=== PATIENT | male | born 1985 | race Caucasian/White ===

== ENCOUNTER 2017-01-29 10:50 | Inpatient (IN) | payer MEDICAID, SELFPAY ==
[2017-01-29 11:29] LABS: PTT 25.3 SEC (22.9-36.1)
[2017-01-29 11:30] LABS: Hematocrit 47.2 % (42.0-52.0); Mean Platelet Volume 8.3 fL (7.4-10.4); Prothrombin Time 13.4 SEC (12.0-14.7); Red Blood Cell (RBC) Count 4.89 mill/uL (4.70-6.10); White Blood Cell (WBC) Count 31.2 thou/uL (4.8-10.8)
[2017-01-29 11:45] LABS: Troponin I 4.513 ng/mL (< 0.028)
[2017-01-29 11:47] LABS: ALT (SGPT) 32 U/L (8-55); AST (SGOT) 35 U/L (5-34); Alkaline Phosphatase 74 U/L (40-150); Anion Gap 16 mmol/L (10-20); BUN (Urea Nitrogen) 14 mg/dL (8.9-20.6); CK (CPK) 181 U/L (30-200); Calc. Creatinine Clearance 0 mL/min (70-130); Calcium 9.2 mg/dL (7.8-10.44); Carbon Dioxide 25 mmol/L (22-29); Chloride 103 mmol/L (98-107); Estimated GFR-MDRD Greater than 90; Globulin 2.7 g/dL (2.4-3.5); Lipase 8 U/L (8-78)
[2017-01-29] MEDS ORDERED: Pantoprazole 40 MG VIAL ONE (11:49)
[2017-01-29] MEDS ORDERED: Fentanyl 100 MCG/2 ML VIAL ONE ×2 (11:49→13:23)
[2017-01-29] MEDS ORDERED: Ondansetron HCl/PF 4 MG/2 ML Vial ONE ×2 (11:49→14:31)
[2017-01-29 11:54] LABS: Band 2 % (5-11); Neutrophil 87 % (42-75); Promyelocytes 1 % (0-0)
--- NOTE | 2017-01-29 11:57 | RAD ---
PORTABLE CHEST: HISTORY: Chest pain. FINDINGS: There is hazy alveolar infiltrate involving the right mid and lower lung. Findings are concerning fo r an inflammatory process. The left lung appears clear. The heart and mediastinum are unremarkable. IMPRESSION: Evidence of hazy alveolar infiltrate in the right mid and lower lung field. Follow-up PA and lateral views of chest recommended for better evaluation. POS: [facility]
[2017-01-29] MEDS ORDERED: cefTRIAXone\\ROCEPHIN 2 GM, Admixture Fee 1 EACH in Sodium Chloride 0.9% 100 ML IVPB SCH (12:00)
[2017-01-29] MEDS ORDERED: Azithromycin 500 MG in Sodium Chloride 0.9% 250 ML 250 ML IVPB SCH (12:00)
[2017-01-29 12:19] LABS: Lactic Acid - Sepsis 3.5 mmol/L (0.5-2.2)
[2017-01-29 12:24] LABS: Acetaminophen Less than 6.0 mcg/mL (10.0-30.0); Salicylate Less than 8.0 mg/dL (15.0-30.0)
[2017-01-29 13:36] LABS: Bilirubin Negative (Negative); Blood, Urine Negative (Negative); Glucose, Urine (Dipstick) Negative (Negative); Ketone, Urine Negative (Negative); Nitrite Negative (Negative); Protein, Urine (Dipstick) Negative (Neg-Trace); Urobilinogen 0.2 mg/dL (0.2-1.0)
[2017-01-29 13:49] LABS: Amphetamine Detected (NotDetected); Methadone Not Detected (NotDetected); Methamphetamine Detected (NotDetected)
[2017-01-29] MEDS ORDERED: Metoprolol Tartrate 25 MG TAB PO SCH (14:15)
[2017-01-29] MEDS ORDERED: Sodium Chloride 0.9% 1,000 ML IV SCH (17:22)
[2017-01-29] MEDS ORDERED: Ondansetron ODT 4 MG TAB SL PRN (17:22)
[2017-01-29] MEDS ORDERED: Ondansetron HCl/PF 4 MG/2 ML Vial IVP PRN (17:22)
[2017-01-29] MEDS ORDERED: Acetaminophen 325 MG TAB PO PRN (17:31)
[2017-01-29] MEDS ORDERED: HYDROcodone/Acetaminophen 5/325 mg Tablet PO PRN (17:31)
[2017-01-29] MEDS ORDERED: Lorazepam 2 MG/ML VIAL SLOW IVP SCH ×3 (17:45→23:15)
[2017-01-29] MEDS: Sodium Chloride 0.9% 1,000 ML IV SCH (18:13)
[2017-01-29 18:44] LABS: Troponin I 4.494 ng/mL (< 0.028)
[2017-01-29 18:53] LABS: Hematocrit 49.3 % (42.0-52.0)
[2017-01-29] MEDS: HYDROcodone/Acetaminophen 10/325 mg Tablet PO PRN (19:36)
[2017-01-29] MEDS: Pantoprazole 40 MG VIAL IVP SCH (20:25)
[2017-01-29] MEDS: Metoprolol Tartrate 25 MG TAB PO SCH (20:26)
[2017-01-29] MEDS ORDERED: Ketorolac Tromethamine 30 MG/ML VIAL IVP SCH (21:00)
[2017-01-29] MEDS ORDERED: [UNRECOGNIZED DRUG - REMARK] FS SCH (21:00)
[2017-01-29] MEDS ORDERED: Famotidine/PF 20 mg/2ml Vial SLOW IVP SCH (21:00)
[2017-01-29] MEDS ORDERED: Lorazepam 1 MG TAB PO PRN (23:05)
[2017-01-29] MEDS ORDERED: cloNIDine 0.1 MG TAB PO SCH (23:15)
[2017-01-29 23:45] LABS: Hematocrit 48.5 % (42.0-52.0)
[2017-01-30 01:09] LABS: Sodium 139 mmol/L (135-148)
[2017-01-30 01:13] LABS: Mode NRB
--- NOTE | 2017-01-30 01:22 | CON ---
DATE OF CONSULTATION: 01/29/2017 SERVICE: Pulmonary Medicine. REASON FOR CONSULTATION: Pneumonia. HISTORY OF PRESENT ILLNESS: The patient is a 31-year-old white male with past medical history signif icant for cyclical vomiting syndrome. He also has acid reflux disease. He was in his usual state of health when he started having increasing severity of his nausea and vomiting. This progressed for a period of a couple of days. He then developed some fevers, chills, and cough. The cough is bringin g up some blood-tinged sputum. It had a stringy component to it most characteristic of reflux. That being said, he alleges that it comes from his lungs. I witnessed a couple of these spells at [facility]. Otherwise, there has been no interval change to his condition. He presented to the emergency dep artment where his white blood cell count was elevated. He had high neutrophils and high . Ches t x-ray was consistent with community-acquired pneumonia. The patient was given some antibiotics. O therwise, there has been no interval change to his condition. He has increasing work of breathing. PAST MEDICAL HISTORY: 1. Peptic ulcer disease. 2. Gastroesophageal reflux disease. 3. Seizure disorder. 4. Cyclical vomiting syndrome. 5. Marijuana abuse. 6. Anxiety disorder. PAST SURGICAL HISTORY: Repair of jaw. SOCIAL HISTORY: He drinks alcohol occasionally. He denies any illicit drugs outside of marijuana. He does not smoke any cigarettes. He denies any exposure to chemicals, dust, asbestos, or tuberculos is. FAMILY HISTORY: Noncontributory. ALLERGIES: No known drug allergies. MEDICATIONS: List of his inpatient medications was reviewed. No specific updates were made at this time. REVIEW OF SYSTEMS: General, head, ears, eyes, nose, throat, cardiovascular, respiratory, GI, , mus culoskeletal, neurologic and skin is negative except as mentioned in the HPI. PHYSICAL EXAMINATION: VITAL SIGNS: Afebrile, pulse 124, blood pressure 128/89, respirations 22, saturation 94% on 4 liters nasal cannula. GENERAL: The patient is awake, alert, in mild respiratory distress. He is vomiting and retching at bedside. The coughing that he is doing is preceded by significant gagging spells. After that, he br ings up a bloody mucoid secretion that is characteristic of stomach acid. HEENT: Normocephalic, atraumatic. Sclerae are white. Conjunctivae pink. Oral and nasal mucosa is moist without lesions. LUNGS: Decent air entry. Crackles are present on the right, but not left. No prolonged expiratory phase is appreciated. No wheezing. Rhonchi clear with cough. HEART: Normal rate, regular. ABDOMEN: Soft, nontender, nondistended. Bowel sounds are positive. MUSCULOSKELETAL: No cyanosis or clubbing. There is no pitting in the bilateral lower extremities. SKIN: Dry. GENITOURINARY: No Aguiar catheter. NEUROLOGIC: Grossly nonfocal. LABORATORY DATA: WBC 31.2, hemoglobin 16.3, platelets 303,000. Neutrophil count was 83%. INR 1.0. Lactate was 3.5, but is down trending to 3.2. Troponin 4.53, it starting to trend downward of 4.49. CRP is elevated. Basic metabolic profile and liver function studies were essentially unremarkable. Urinalysis is unremarkable. Urine drug screen is positive for amphetamines, methamphetamine, and c annabinoids. Alcohol, acetaminophen, and salicylate are all unremarkable. IMAGING: Chest x-ray demonstrates opacification of portion of the right lower lobe, and likely right upper lobe. The right middle lobe appears to be spared. The left lung does not demonstrate any inf iltrates. ASSESSMENT: 1. Acute hypoxic respiratory failure. 2. Community-acquired pneumonia. 3. Coughing up blood, stemming from gagging, likely representing gastrointestinal losses, minimal. PLAN: The patient is doing okay from a respiratory perspective. At this point, I am not concerned a bout him or his respiratory status. He does, however, need to be watched very closely. Intermittent BiPAP can be considered overnight if he has increasing work of breathing, but currently, he suggeste d his breathing is labored fairly comfortable. I witnessed one of these hemoptysis episodes at [facility] and it was preceded with excessive gagging. My suspicion is, this is a GI origin. For the time livia kline, supportive care including antibiotics directed at severe community-acquired pneumonia will be c ontinued. If he clinically defervesces from his underlying illness, there will be no need for chest x-ray until 4-6 weeks in the future; if he gets worse, intubation will be considered. Pulmonary Crit ical Care will continue to follow while the patient remains in this location. Obviously, we will lashawn p him n.p.o. at this point.
[2017-01-30 02:04] LABS: Critical Call CKMBM RESULT DECREASING; Critical Call Chem Troponin I RESULT DECREASING; Troponin I 3.036 ng/mL (< 0.028)
[2017-01-30] MEDS ORDERED: Ondansetron HCl/PF 4 MG/2 ML Vial IVP SCH (02:15)
[2017-01-30] MEDS: Ketorolac Tromethamine 30 MG/ML VIAL IVP PRN ×3 (02:16→17:08)
[2017-01-30] MEDS: Sodium Chloride 0.9% 1,000 ML IV SCH ×3 (02:22→10:02)
[2017-01-30] MEDS: Lorazepam 2 MG/ML VIAL SLOW IVP PRN (03:42)
[2017-01-30 05:13] LABS: ALT (SGPT) 20 U/L (8-55); AST (SGOT) 27 U/L (5-34); Alkaline Phosphatase 64 U/L (40-150); Anion Gap 16 mmol/L (10-20); BUN (Urea Nitrogen) 15 mg/dL (8.9-20.6); Bilirubin, Total 1.6 mg/dL (0.2-1.2); Calc. Creatinine Clearance 113 mL/min (70-130); Calcium 8.9 mg/dL (7.8-10.44); Carbon Dioxide 21 mmol/L (22-29); Chloride 109 mmol/L (98-107); Cholesterol 161 mg/dl (< 200 Desired); Estimated GFR-MDRD Greater than 90; Globulin 2.6 g/dL (2.4-3.5); LDL Cholesterol, Calculated 81 mg/dL; Magnesium 1.8 mg/dL (1.6-2.6)
[2017-01-30 05:46] LABS: Band 1 % (5-11); Mean Platelet Volume 9.4 fL (7.4-10.4); Neutrophil 87 % (42-75); Red Blood Cell (RBC) Count 4.77 mill/uL (4.70-6.10); White Blood Cell (WBC) Count 27.6 thou/uL (4.8-10.8)
[2017-01-30] MEDS: Pantoprazole 40 MG VIAL IVP SCH ×2 (07:54→20:32)
[2017-01-30] MEDS: Metoprolol Tartrate 25 MG TAB PO SCH (07:54)
[2017-01-30] MEDS: HYDROcodone/Acetaminophen 10/325 mg Tablet PO PRN ×2 (07:55→13:56)
[2017-01-30] MEDS ORDERED: Sodium Chloride 0.9% 1,000 ML IV SCH (08:15)
--- NOTE | 2017-01-30 08:51 | RAD ---
PORTABLE AP CHEST XRAY: DATE: 01/30/17. HISTORY: Shortness of breath. COMPARISON: 01/29/17. FINDINGS: Again noted are increased alveolar opacities seen throughout the right lung with increased interstiti al opacities now seen in the left mid lung zone. Cardiac silhouette and pulmonary vasculature are wi thin normal limits. There has been no other interval change from the prior exam. IMPRESSION: Increase in alveolar opacities within the right lung with interval development of increased interstit ial densities in the left perihilar region. Findings may be related to either worsening asymmetric p ulmonary edema or worsening infectious process. Continued followup to complete resolution is recomme nded. POS: [facility]
[2017-01-30] MEDS ORDERED: guaiFENesin ER 600 MG TAB PO SCH (09:00)
[2017-01-30] MEDS: guaiFENesin ER 600 MG TAB PO SCH ×2 (10:03→20:32)
[2017-01-30 10:05] LABS: Troponin I 1.796 ng/mL (< 0.028)
--- NOTE | 2017-01-30 11:09 | PDOC.PN ---
- Subjective Encounter Start Date: 01/30/17 Encounter Start Time: 07:55 Pt admitted to IMCU, quickly transferred to CCU side. Seen by pulm, minimal hemoptysis per their eval. Thinks its all CAP. On appropriate abx. Troponins trended up to 4.9, then started coming down no f/C, no D/C. Belly feels jittery, pt anxious, more than baseline place don precedex drip with PRN ativan. [place] back positive for amphetamines/meth. Pt says he was given a 'truck stop upper' by his friends. some nausea without vomiting. 10 point ROS performed and neg for all systems except as per HPI - Objective Resuscitation Status: Resuscitation Status FULL:Full Resuscitation MAR Reviewed: Yes Vital Signs & Weight: Vital Signs (12 hours) Temp Pulse Resp BP BP Pulse Ox 01/30/17 07:00 98.5 F 01/30/17 06:19 93 L 01/30/17 04:00 97.9 F 01/30/17 03:00 99.6 F 120 H 40 H 95 01/30/17 02:00 99.6 F 01/30/17 01:20 98.7 F 140 H 36 H 90 L 01/30/17 00:00 98.1 F 125 H 26 H 114/48 L 86 L 01/29/17 23:37 100/67 Weight Weight 136 lb Most Recent Monitor Data Heart Rate from ECG 98 NIBP 110/84 NIBP BP-Mean 91 Respiration from ECG 46 SpO2 88 I&O: 01/29/17 01/30/17 01/31/17 06:59 06:59 06:59 Intake Total 1332 90 Output Total 425 250 Balance 907 -160 Result Diagrams: 01/30/17 03:24 01/30/17 03:24 Radiology Reviewed by me: Yes EKG Reviewed by me: Yes Phys Exam - Physical Examination Constitutional: NAD HEENT: PERRLA, moist MMs, sclera anicteric, oral pharynx no lesions Neck: no nodes, no JVD, supple, full ROM Respiratory: no wheezing, no rhonchi right sided rale sin all lung fiels, slight left posterior to midlung tachy, regular, no murmurs Gastrointestinal: soft, non-tender, no distention, positive bowel sounds Musculoskeletal: no edema, pulses present Neurological: non-focal, normal sensation, moves all 4 limbs Lymphatic: no nodes Psychiatric: A&O x 3 Deviation from normal: very anxious Skin: no rash, normal turgor, cap refill <2 seconds Dx/Plan (1) CAP (community acquired pneumonia) Code(s): J18.9 - PNEUMONIA, UNSPECIFIED ORGANISM Status: Acute Qualifiers: Laterality: right Lung location: middle lobe of lung Qualified Code(s): J18.1 - Lobar pneumonia, unspecified organism Comment: present on admit, CTX plus levoflox (2) NSTEMI (non-ST elevated myocardial infarction) Code(s): I21.4 - NON-ST ELEVATION (NSTEMI) MYOCARDIAL INFARCTION Status: Acute Comment: likely from amphetamine use, intentional or otherwise (3) Amphetamine abuse Code(s): F15.10 - OTHER STIMULANT ABUSE, UNCOMPLICATED Status: Acute Comment : pt denies taking intentionally (4) H/O anxiety disorder Code(s): Z86.59 - PERSONAL HISTORY OF OTHER MENTAL AND BEHAVIORAL DISORDERS Status: Acute (5) Acute hypoxemic respiratory failure Code(s): J96.01 - ACUTE RESPIRATORY FAILURE WITH HYPOXIA Status: Acute Comment: secondary to PNA (6) Severe sepsis Code(s): A41.9 - SEPSIS, UNSPECIFIED ORGANISM; R65.20 - SEVERE SEPSIS WITHOUT SEPTIC SHOCK Status: Acute Comment: elevated lactate, fever, WBC, tachycardia and bacterial pneumonia (7) Hemoptysis Code(s): R04.2 - HEMOPTYSIS Status: Acute Comment: none since last night. Pulm doubt autoimmune disease - Plan * .
[2017-01-30] MEDS: cefTRIAXone\\ROCEPHIN 2 GM in Sodium Chloride 0.9% 100 ML IVPB SCH (12:33)
[2017-01-30] MEDS ORDERED: Furosemide 20 MG/2 ML VIAL SLOW IVP SCH (13:15)
--- NOTE | 2017-01-30 13:18 | PRG ---
DATE OF SERVICE: 01/30/2017 SERVICE: Pulmonary Medicine. INTERVAL HISTORY: The patient is doing fine from a respiratory standpoint. He has been weaned down to 50% on a Ventimask. His oxygen requirements are actually improving dramatically. His mentation i s also improving. Because of increasing agitation and diaphoresis associated with his acute intoxica tion, the patient was moved to the ICU to put on dexmedetomidine. This was a fantastic drug for him and help level him out. He currently denies any fevers, chills, nausea, vomiting, diarrhea or chest discomfort. He continues to have persistent nausea and abdominal discomfort which has been ongoing f or several months if not years. PHYSICAL EXAMINATION: VITAL SIGNS: Afebrile, pulse 113, blood pressure 114/81, respirations 52, saturation 92% on 50% Vent imask. GENERAL: The patient is awake, alert, in no apparent distress. LUNGS: Decent air entry with crackles on the right. No prolonged expiratory phase or wheezing is ap preciated. HEART: Normal rate and regular. ABDOMEN: Soft, nontender, and nondistended. Bowel sounds positive. MUSCULOSKELETAL: No cyanosis or clubbing. There is no pitting in the bilateral lower extremities. NEUROLOGIC: Grossly nonfocal. LABORATORY DATA: WBC 27.6, hemoglobin 16.4 and stable. Platelets 229. Neutrophil count 87% with 1% bands. These are both roughly stable. Lymphocyte count, however, is responding. INR 1.0. A pH 7. 43, pCO2 27.9, and pO2 54. Basic metabolic profile is completely unremarkable. Total bilirubin is 1 .6 and gently up trending. Troponin is down trending to 1.8. BNP 2220. Liver function studies are otherwise unremarkable. Urinalysis is negative. Urine drug screen is positive for amphetamines, met hamphetamines and adenoids. Rheumatoid factor is negative. Blood cultures x2 are unremarkable to luis wynn. IMAGING DATA: Ultrasound of the heart demonstrates 15%-20% ejection fraction with severely depressed left ventricle, moderate mitral regurgitation, and mild to moderate tricuspid regurgitation. ASSESSMENT: 1. Acute systolic heart failure. 2. Non-ST elevation myocardial infarction. 3. Community-acquired pneumonia, severe. 4. Acute hypoxic respiratory failure. 5. Amphetamine and marijuana abuse. PLAN: We will continue our empiric antibiotics. Cardiology consultation will be placed for the non- ST elevation ME, elevated BNP, new finding of systolic heart failure. Pulmonary or Critical Care wing l continue to follow while the patient remains in this location for the next 24 hours.
--- NOTE | 2017-01-30 14:27 | HP ---
DATE OF ADMISSION: 01/29/2017 TIME OF VISIT: 01/29/2017 at 14:00 CHIEF COMPLAINT: Coughing up blood. HISTORY OF PRESENT ILLNESS: Mr. Maloney is a 31-year-old white male with history of anxiety, seizures after benzodiazepine withdrawal, and peptic ulcer disease who presents to the Emergency Department for a 1-day history of coughing up blood. States he had a cough and started noting silver dollar-sized spots of blood the night prior to presentation. This came after a 7-day course of nausea, vomiting , diarrhea and was not accompanied by fever. He is actually feeling better. He said he has had some chills, but no fever. He does complain right now of right-sided chest pain. He has been able to eat without any difficulty, had pizza last night, and denied doing anything else. He does have a history of chronic marijuana use that he takes for chronic abdominal problems. Interestingly, he initially told me that he does not use any other drugs. However, later the night of admission, urine drug screen did come back positive for amphetamines and methamphetamines. In the emergency department, he was noted to be tachycardic in the 120s, blood pressure was borderline normal, hemoglobin and creatinine were normal, troponin was elevated at 4.513. We were called for admission to the ICU. He feels like he cannot breathe. His oxygen sats are well, but he is very anxious. Denies any GI bleeding, hematemesis, melena or hematochezia. Denies any rectal pain. PAST MEDICAL HISTORY: 1. Peptic ulcer disease. 2. History of seizures, none recently, last in 2013 after abrupt stoppage of prescribed benzodiazepines. 3. Chronic marijuana use. 4. Probable polysubstance abuse. PAST SURGICAL HISTORY: Includes jaw repair remotely. HOME MEDICATIONS: Prilosec 20 mg p.o. daily, which he states he does take every day. ALLERGIES: NKDA. FAMILY HISTORY: Dad was a tobacco user and had COPD. No history of premature coronary disease. SOCIAL HISTORY: Significant for marijuana 2-3 times per week. Last use was a couple of weeks ago. He takes this for nausea and chronic abdominal pain. Uses rare alcohol, used to drink heavy in the past, and does not drink. Has not had heavy drinking pattern in over a year he states. REVIEW OF SYSTEMS: A 10 point review of systems was performed and it is negative for all other systems except those as per HPI. PHYSICAL EXAMINATION: VITAL SIGNS: Temperature 98.4, pulse 121, blood pressure 107/74, respiratory rate 22, satting 98% on 2 liters. GENERAL: He is awake. He is alert. He is oriented x3. He is a thin, well- developed white male who appears to be acutely anxious. He is in mild respiratory distress. HEENT: Normocephalic, atraumatic. Pupils are equal and reactive bilaterally. Mucous membranes are moist. He has no visible lesions. No thrush. NECK: Supple. There is no lymphadenopathy, JVD or thyromegaly. He has normal carotid upstrokes without bruits. He is tachycardic. CARDIOVASCULAR: Normal S1 and S2. I do not appreciate S3 or S4. He is tachycardic but regular. There are no audible murmurs. LUNGS: Have right posterior and lateral crackles about mcc of the chest. Left appears to be clear in all rosas. ABDOMEN: Diffusely tender without rebound, rigidity or guarding. He has normoactive bowel sounds present in all 4 quadrants. EXTREMITIES: Show no cyanosis or clubbing. No edema. SKIN: Warm, moist, and well perfused. He has no rashes, no lesions. MUSCULOSKELETAL: Normal to inspection. He has no inflamed joints, no increased redness, and no palpable effusions. NEUROLOGIC: Cranial nerves II-XII are grossly intact. He has normal speech pattern, though it does seem pressured and fast. He has no focal neurologic deficits. PSYCHIATRIC: The patient is alert and oriented x3. He appears extremely anxious. LABORATORY DATA AND IMAGING DATA: 1. CMP showed sodium 140, potassium 3.8, chloride 103, bicarbonate 25, BUN 14, creatinine 0.92, and glucose of 128. Liver functions are normal. 2. CBC showed white count 31,200 and 87% granulocytes with 2% bands, hemoglobin 16.3, hematocrit of 47.2, and platelets normal. 3. Lipase was normal at 8. 4. Lactic acid elevated at 3.5. CK was elevated at 181, CK-MB of 16.5 and troponin I of 4.513. 5. Chest x-ray showed right middle lobe and right lower lobe alveolar infiltrates. ASSESSMENT AND PLAN: 1. Hemoptysis: Certainly the patient could have collagen vascular disease. We will check SINTIA, rheumatoid factor, ANCA both P and C. We will watch for signs of gross hemoptysis. We will place him on the IMCU. We will use oxygen to titrate to keep sats greater than 92%. We will ask Pulmonology to evaluate. 2. Right middle and lower lobe pneumonia: Community acquired. Patient has been started on ceftriaxone and levofloxacin for community-acquired pneumonia in the ICU setting. He initially denied doing any drugs. He is positive for amphetamine and methamphetamine. 3. Non-ST elevation myocardial infarction. Troponin certainly positive at 4.5 , likely due to his methamphetamine use. We will trend out his troponins. Due to his hemoptysis, we will not place him on any Lovenox at this time. Cannot use nitro paste as his blood pressure is too borderline. We will use metoprolol to try to get his heart rate slowed down to increase fill time and hopefully improve cardiac output and blood pressure. We will get a 2D echocardiogram ordered. 4. Polysubstance abuse: As patient does use marijuana, he states he does not use methamphetamines, however, said he went to a constitution party where they used "[employer]": That he describes as a stimulant sold at truck stops. He said his friend gave him some of that, but must have been laced or substituted for meth. 5. Acute hypoxic respiratory failure. Oxygen saturation is low on arrival. He is at borderline 92%-98% on 2 liters nasal cannula. We will titrate oxygen to keep his sats good. 6. History of seizure after benzodiazepine withdrawal. Suspect he has a history of dependence. I have p.r.n. Ativan available; however, on arrival to [facility], he did not get a dose in the ER and was literally crying because he did not get his Ativan. We will be very careful and judicious. 7. History of peptic ulcer disease: No evidence currently of upper gastrointestinal bleeding. We will continue Prevacid 20 mg IV q.12. Forty five minutes critical care was spent at the bedside. MTDD
--- NOTE | 2017-01-30 22:08 | CON ---
DATE OF CONSULTATION: 01/30/2017 HISTORY: Chester Maloney is a 31-year-old white male, who is admitted with a 1 week history of increased shortness of breath and cough. He denied any fever. He then started to have hemoptysis and is admitted for further evaluation. Chest x-ray showed right-sided infiltrate. He has been treated with IV antibiotics. Echocardiogram was performed, which revealed severe left ventricular dysfunction. He denies any chest discomfort except at times while coughing. PAST MEDICAL HISTORY: History of peptic ulcer disease. He has a seizure in 2013 after abruptly stopping benzodiazepines. He has polysubstance abuse. MEDICATIONS: Prilosec 20 mg daily, which he is not taking every day. ALLERGIES: None. OPERATIONS: Jaw surgery. SOCIAL HISTORY: He smokes marijuana 2-3 times per week, which he states he uses it for nausea and abdominal pain. He used to be a heavy drinker, but does not drink. He had a urine drug screen positive for methamphetamines and amphetamines. REVIEW OF SYSTEMS: Twelve point review of systems otherwise unremarkable. PHYSICAL EXAMINATION: VITAL SIGNS: 1Blood pressure 100/72, pulse of 94. He has been given 20 mg of Lasix IV and has diuresed 1400 mL. CHEST: Reveals crackles on the right. CARDIOVASCULAR: S1 and S2 are normal, without any S3, S4 or murmurs. ABDOMEN: Normal bowel sounds, without tenderness or organomegaly. EXTREMITIES: Revealed no clubbing, cyanosis or edema. NEUROLOGIC: Grossly intact. LABORATORY DATA: EKG revealed sinus tachycardia at a rate of 110 per minute, possible left atrial enlargement. Echocardiogram revealed severe left ventricular dysfunction with ejection fraction of 15% to 20%, moderate mitral regurgitation and mild to moderate tricuspid regurgitation. White count 27,600 , hemoglobin 16.4, hematocrit 47.0, platelets 229,000. INR 1.0, pH 7.43, pCO2 of 27.9, pO2 of 54.1. Sodium 142, potassium 4.0, chloride 109, carbon dioxide 21, BUN 15, creatinine 0.83. BNP 2220.4, cholesterol 161, triglycerides 141, HDL 52, LDL 81, CK-MB 24.2. Troponin I 4.970. IMPRESSION: 1. Severe cardiomyopathy with ejection fraction of 15% to 20%, probably nonischemic. 2. Elevated cardiac enzymes. 3. Probably in the acute phase of a myocarditis, although coronary artery disease and possible [id number] elevation myocardial infarction will need to be ruled out. 4. Marijuana use. 5. Amphetamine and methamphetamine abuse. 6. History of gastroesophageal reflux disease and peptic ulcer disease. 7. History of seizures with benzodiazepine withdrawal. 8. History of heavy EtOH abuse in the past- PLAN: Patient will continue to be diuresed. We will switch him from metoprolol to carvedilol. LETITIA inhibitor will also be added as his blood pressure will allow. Consideration history of cardiac catheterization to rule out coronary artery disease. MTDD
[2017-01-31] MEDS: Ketorolac Tromethamine 30 MG/ML VIAL IVP PRN ×2 (02:10→08:19)
[2017-01-31 04:27] LABS: #Eosinphils 0.1 thou/uL (0.0-0.7); #Lymphocytes 2.4 thou/uL (1.20-3.40); #Monocytes 0.9 thou/uL (0.11-0.59); #Neutrophils 10.8 thou/uL (1.40-6.50); %Basophils 0.2 % (0.0-1.0); %Eosinophils 0.7 % (0.0-10.0); %Lymphocytes 16.6 % (21.0-51.0); %Monocytes 6.6 % (0.0-10.0); Hematocrit 42.3 % (42.0-52.0); Mean Platelet Volume 8.9 fL (7.4-10.4); Red Blood Cell (RBC) Count 4.29 mill/uL (4.70-6.10); White Blood Cell (WBC) Count 14.2 thou/uL (4.8-10.8)
[2017-01-31 04:42] LABS: Anion Gap 9 mmol/L (10-20); BUN (Urea Nitrogen) 12 mg/dL (8.9-20.6); Calc. Creatinine Clearance 111 mL/min (70-130); Calcium 8.7 mg/dL (7.8-10.44); Carbon Dioxide 26 mmol/L (22-29); Chloride 106 mmol/L (98-107); Estimated GFR-MDRD Greater than 90; Magnesium 1.7 mg/dL (1.6-2.6)
[2017-01-31] MEDS: HYDROcodone/Acetaminophen 10/325 mg Tablet PO PRN ×4 (05:59→19:09)
[2017-01-31] MEDS: Pantoprazole 40 MG VIAL IVP SCH ×2 (08:31→20:26)
[2017-01-31] MEDS: guaiFENesin ER 600 MG TAB PO SCH ×2 (08:31→20:26)
[2017-01-31] MEDS: Carvedilol 3.125 MG TAB PO SCH ×3 (08:32→17:41)
[2017-01-31] MEDS ORDERED: Furosemide 20 MG TAB PO SCH ×2 (09:00→09:45)
--- NOTE | 2017-01-31 10:50 | PRG ---
DATE OF SERVICE: 01/31/2017 SUBJECTIVE: This morning, he is awake and alert. Denies any shortness of breath. PHYSICAL EXAMINATION: VITAL SIGNS: Blood pressure is 130/70, pulse 102, O2 sats 99% on 2 liters, respirations 19. His I's and O's are 1994 in and 1925 out. CHEST: Reveals decreased breath sounds, bilateral crackles. CARDIAC: Normal S1 and S2. No gallops. ABDOMEN: Soft, no masses. IMAGING DATA AND LABORATORY DATA: X-ray shows pulmonary edema. His electrolytes are normal. White count 14,000. Troponin is 1.7. IMPRESSION: 1. Cardiomyopathy, 15% ejection fraction. 2. History of substance abuse. 3. History of seizures, withdrawal of benzodiazepines. PLAN: He is on dexa for his seizure disorders, withdrawal from substance abuse. He is on broad-spec trum antibiotics, which I would continue for another 24 hours; thereafter, switch over to oral medica tion. Continue PT and supportive care. We will follow.
[2017-01-31] MEDS ORDERED: HYDROcodone/Acetaminophen 10/325 mg Tablet PO PRN (11:35)
--- NOTE | 2017-01-31 11:39 | PDOC.PN ---
- Subjective Encounter Start Date: 01/31/17 Encounter Start Time: 09:15 Pt seen by cardiology yesterday. He mentioned that he though tit is a nonischemic cardiomyopathy. ? myocarditis. EF 15-20% On precedex for suspected benzo withdrawl, though he denies being on any benzos for a long time. Regular MJ use, denies meth/amphetamines but yet UDS positive. Did well overnight, weaning down off o2. HR down to 80s when unditurbed, to 100s when awakened. complains of centrla chest pain radiating to back. Stigler helps a little, toradol ineffective No F/C, no N/V//D/C. chest sounds better this morning 10 point ROs performed and neg for all systems except as above - Objective Resuscitation Status: Resuscitation Status FULL:Full Resuscitation MAR Reviewed: Yes Vital Signs & Weight: Vital Signs (12 hours) Temp Pulse Resp Pulse Ox 01/31/17 08:00 98.2 F 01/31/17 06:36 99 01/31/17 06:35 82 19 99 01/31/17 05:00 98.3 F 01/31/17 01:58 85 18 95 01/31/17 00:00 98.4 F Weight Weight 136 lb Most Recent Monitor Data Heart Rate from ECG 87 NIBP 128/73 NIBP BP-Mean 99 Respiration from ECG 13 SpO2 97 I&O: 01/30/17 01/31/17 02/01/17 06:59 06:59 06:59 Intake Total 1332 1994 240 Output Total 425 1925 0 Balance 907 69 240 Result Diagrams: 01/31/17 03:53 01/31/17 03:53 Radiology Reviewed by me: Yes EKG Reviewed by me: Yes Phys Exam - Physical Examination Constitutional: NAD HEENT: PERRLA, moist MMs, sclera anicteric, oral pharynx no lesions Neck: no nodes, no JVD, supple, full ROM Respiratory: no wheezing, no rales, no rhonchi, clear to auscultation bilateral Cardiovascular: RRR, no significant murmur, no rub Gastrointestinal: soft, non-tender, no distention, positive bowel sounds Musculoskeletal: no edema, pulses present Neurological: non-focal, normal sensation, moves all 4 limbs Lymphatic: no nodes Psychiatric: normal affect, A&O x 3 Skin: no rash, normal turgor, cap refill <2 seconds Dx/Plan (1) CAP (community acquired pneumonia) Code(s): J18.9 - PNEUMONIA, UNSPECIFIED ORGANISM Status: Acute Qualifiers: Laterality: right Lung location: middle lobe of lung Qualified Code(s): J18.1 - Lobar pneumonia, unspecified organism Comment: present on admit, CTX plus levoflox. RML, RLL, some RUL yesterday seen , no new CXR today (2) NSTEMI (non-ST elevated myocardial infarction) Code(s): I21.4 - NON-ST ELEVATION (NSTEMI) MYOCARDIAL INFARCTION Status: Acute Comment: likely from amphetamine use, intentional or otherwise, though cardiology suggested non-ischemic myocarditis (3) Amphetamine abuse Code(s): F15.10 - OTHER STIMULANT ABUSE, UNCOMPLICATED Status: Acute Comment : pt denies taking intentionally (4) H/O anxiety disorder Code(s): Z86.59 - PERSONAL HISTORY OF OTHER MENTAL AND BEHAVIORAL DISORDERS Status: Acute (5) Acute hypoxemic respiratory failure Code(s): J96.01 - ACUTE RESPIRATORY FAILURE WITH HYPOXIA Status: Acute Comment: secondary to PNA (6) Severe sepsis Code(s): A41.9 - SEPSIS, UNSPECIFIED ORGANISM; R65.20 - SEVERE SEPSIS WITHOUT SEPTIC SHOCK Status: Acute Comment: elevated lactate, fever, WBC, tachycardia and bacterial pneumonia (7) Hemoptysis Code(s): R04.2 - HEMOPTYSIS Status: Acute Comment: says he had some earlier. Pulm doubt autoimmune disease - Plan cont current plan of care, continue antibiotics, PT/OT, out of bed/ambulate * .
[2017-01-31] MEDS: cefTRIAXone\\ROCEPHIN 2 GM in Sodium Chloride 0.9% 100 ML IVPB SCH (12:05)
[2017-01-31] MEDS: Lorazepam 2 MG/ML VIAL SLOW IVP PRN (20:33)
[2017-02-01] MEDS: HYDROcodone/Acetaminophen 10/325 mg Tablet PO PRN ×6 (02:37→23:48)
[2017-02-01 04:22] LABS: Anion Gap 10 mmol/L (10-20); BUN (Urea Nitrogen) 14 mg/dL (8.9-20.6); Calc. Creatinine Clearance 115 mL/min (70-130); Calcium 8.7 mg/dL (7.8-10.44); Carbon Dioxide 26 mmol/L (22-29); Chloride 104 mmol/L (98-107); Estimated GFR-MDRD Greater than 90; Magnesium 1.4 mg/dL (1.6-2.6)
[2017-02-01 04:53] LABS: #Eosinphils 0.3 thou/uL (0.0-0.7); #Lymphocytes 2.6 thou/uL (1.20-3.40); #Monocytes 0.7 thou/uL (0.11-0.59); #Neutrophils 4.2 thou/uL (1.40-6.50); %Basophils 0.5 % (0.0-1.0); %Eosinophils 3.6 % (0.0-10.0); %Lymphocytes 32.9 % (21.0-51.0); %Monocytes 8.9 % (0.0-10.0); Hematocrit 37.8 % (42.0-52.0); Mean Platelet Volume 9.1 fL (7.4-10.4); Red Blood Cell (RBC) Count 3.84 mill/uL (4.70-6.10); White Blood Cell (WBC) Count 7.8 thou/uL (4.8-10.8)
[2017-02-01] MEDS ORDERED: Magnesium 2 GM/NS 0.9% 100 ML 2 GM in Premix Bag 1 BAG IVPB SCH (08:30)
[2017-02-01] MEDS: Potassium Chloride 20 MEQ TAB PO SCH ×2 (08:48→11:38)
[2017-02-01] MEDS: guaiFENesin ER 600 MG TAB PO SCH ×2 (08:49→21:42)
[2017-02-01] MEDS: Furosemide 40 MG TAB PO SCH (08:51)
[2017-02-01] MEDS: Carvedilol 3.125 MG TAB PO SCH ×2 (08:52→17:02)
[2017-02-01] MEDS: Pantoprazole 40 MG VIAL IVP SCH ×2 (08:53→21:41)
[2017-02-01] MEDS: cefTRIAXone\\ROCEPHIN 2 GM in Sodium Chloride 0.9% 100 ML IVPB SCH (11:38)
--- NOTE | 2017-02-01 12:17 | PDOC.PN ---
- Subjective Encounter Start Date: 02/01/17 Encounter Start Time: 09:20 Pt doing much better, weaned off of o2, HR in 70s to 80s most of the time. Still on precedex, will stop and convert to po. seen by Dr Tran, plans to do heart cath tomorrow. No F/C, no N/V/D/C, still with blood dtined clear sputum. Breathing much easier 10 point ROs performed and neg for all systems except as per hPI - Objective Resuscitation Status: Resuscitation Status FULL:Full Resuscitation MAR Reviewed: Yes Vital Signs & Weight: Vital Signs (12 hours) Temp Pulse Resp Pulse Ox 02/01/17 08:00 98.6 F 95 21 H 96 02/01/17 06:30 97 02/01/17 06:27 85 28 H 97 02/01/17 05:00 97.3 F L Weight Weight 136 lb Most Recent Monitor Data Heart Rate from ECG 97 NIBP 124/97 NIBP BP-Mean 111 Respiration from ECG 19 SpO2 96 I&O: 01/31/17 02/01/17 02/02/17 06:59 06:59 06:59 Intake Total 1993 1142.9 300 Output Total 1924 2054 1000 Balance 69 -912.1 -700 Result Diagrams: 02/01/17 03:32 02/01/17 03:32 Radiology Reviewed by me: Yes EKG Reviewed by me: Yes Phys Exam - Physical Examination Constitutional: NAD HEENT: PERRLA, moist MMs, sclera anicteric, oral pharynx no lesions Neck: no nodes, no JVD, supple, full ROM Respiratory: no wheezing, no rales, no rhonchi, clear to auscultation bilateral Cardiovascular: RRR, no significant murmur, no rub Gastrointestinal: soft, non-tender, no distention, positive bowel sounds Musculoskeletal: no edema, pulses present Neurological: non-focal, normal sensation, moves all 4 limbs Lymphatic: no nodes Psychiatric: normal affect, A&O x 3 Skin: no rash, normal turgor, cap refill <2 seconds Dx/Plan (1) CAP (community acquired pneumonia) Code(s): J18.9 - PNEUMONIA, UNSPECIFIED ORGANISM Status: Acute Qualifiers: Laterality: right Lung location: middle lobe of lung Qualified Code(s): J18.1 - Lobar pneumonia, unspecified organism Comment: present on admit, CTX plus levoflox. RML, RLL, some RUL prior, no new CXR today (2) NSTEMI (non-ST elevated myocardial infarction) Code(s): I21.4 - NON-ST ELEVATION (NSTEMI) MYOCARDIAL INFARCTION Status: Acute Comment: likely from amphetamine use, intentional or otherwise, though cardiology suggested non-ischemic myocarditis. Heart cath likely tomorrow (3) Amphetamine abuse Code(s): F15.10 - OTHER STIMULANT ABUSE, UNCOMPLICATED Status: Acute Comment : pt denies taking intentionally (4) H/O anxiety disorder Code(s): Z86.59 - PERSONAL HISTORY OF OTHER MENTAL AND BEHAVIORAL DISORDERS Status: Acute Comment: stop precedex, po ativan tid scheduled today, wean quickly. (5) Acute hypoxemic respiratory failure Code(s): J96.01 - ACUTE RESPIRATORY FAILURE WITH HYPOXIA Status: Resolved Comment: secondary to PNA (6) Severe sepsis Code(s): A41.9 - SEPSIS, UNSPECIFIED ORGANISM; R65.20 - SEVERE SEPSIS WITHOUT SEPTIC SHOCK Status: Resolved Comment: elevated lactate, fever, WBC, tachycardia and bacterial pneumonia (7) Hemoptysis Code(s): R04.2 - HEMOPTYSIS Status: Acute Comment: Sa wmyself this morning. Pulm doubt autoimmune disease - Plan cont current plan of care, continue antibiotics, PT/OT, out of bed/ambulate transfer to [facility] * .
[2017-02-01] MEDS ORDERED: Lorazepam 1 MG TAB PO SCH (12:30)
[2017-02-01] MEDS ORDERED: Communication Order-Pharmacy FS SCH (12:45)
[2017-02-01] MEDS: Sodium Chloride 0.9% 1,000 ML IV SCH (14:57)
[2017-02-01] MEDS: Lorazepam 1 MG TAB PO SCH ×2 (14:58→21:41)
--- NOTE | 2017-02-01 16:27 | PRG ---
DATE OF SERVICE: 02/01/2017 SUBJECTIVE: This morning, he is less agitated and less short of breath. OBJECTIVE: VITAL SIGNS: Sats are 97% on 3 liters, respirations 28, blood pressure 150/78. His I's and O's 1142 in, 2055 out. CHEST: Reveals no wheezing. CARDIAC: Normal S1, S2. ABDOMEN: Soft, no masses. LABORATORY DATA: White count 7000, H&H 13 and 37, platelet count normal. Electrolytes are normal. IMPRESSION: 1. Polysubstance drug abuse. 2. Cardiomyopathy 3. Respiratory failure. 4. Pneumonia. PLAN: Continue present cardiac care, empiric antibiotics, neb treatments, supportive care. Disposit ion as per Cardiology.
[2017-02-01] MEDS: Lisinopril 2.5 MG TAB PO SCH (21:41)
[2017-02-01] MEDS: Ketorolac Tromethamine 30 MG/ML VIAL IVP PRN (21:52)
[2017-02-02 04:32] LABS: #Basophils 0.1 thou/uL (0.0-0.2); #Eosinphils 0.4 thou/uL (0.0-0.7); #Lymphocytes 2.5 thou/uL (1.20-3.40); #Monocytes 0.7 thou/uL (0.11-0.59); #Neutrophils 4.5 thou/uL (1.40-6.50); %Basophils 0.8 % (0.0-1.0); %Eosinophils 4.7 % (0.0-10.0); %Lymphocytes 30.2 % (21.0-51.0); Hematocrit 41.9 % (42.0-52.0); Mean Platelet Volume 8.4 fL (7.4-10.4); Red Blood Cell (RBC) Count 4.26 mill/uL (4.70-6.10); White Blood Cell (WBC) Count 8.2 thou/uL (4.8-10.8)
[2017-02-02 04:44] LABS: Anion Gap 12 mmol/L (10-20); BUN (Urea Nitrogen) 11 mg/dL (8.9-20.6); Calc. Creatinine Clearance 104 mL/min (70-130); Calcium 9.2 mg/dL (7.8-10.44); Carbon Dioxide 30 mmol/L (22-29); Chloride 100 mmol/L (98-107); Estimated GFR-MDRD Greater than 90; Magnesium 1.8 mg/dL (1.6-2.6)
[2017-02-02] MEDS: HYDROcodone/Acetaminophen 10/325 mg Tablet PO PRN ×3 (04:58→13:52)
[2017-02-02] MEDS: Ketorolac Tromethamine 30 MG/ML VIAL IVP PRN (05:39)
[2017-02-02] MEDS: Carvedilol 3.125 MG TAB PO SCH ×2 (05:41→17:18)
[2017-02-02] MEDS: Sodium Chloride 0.9% 1,000 ML IV SCH (06:31)
--- NOTE | 2017-02-02 07:41 | RAD ---
1 VIEW CHEST: Date: 02/02/17 COMPARISON: 01/30/17. HISTORY: Shortness of breath. FINDINGS: Normal cardiac silhouette. Pulmonary vessels and hilum are normal. Costophrenic angles clear. The pre viously noted bilateral right and left opacities have essentially resolved. No pneumothorax. IMPRESSION: Improved aeration in parenchyma. POS: [facility]
[2017-02-02] MEDS: Pantoprazole 40 MG VIAL IVP SCH ×2 (09:07→21:47)
[2017-02-02] MEDS: Lisinopril 2.5 MG TAB PO SCH ×2 (09:07→21:49)
[2017-02-02] MEDS: Lorazepam 1 MG TAB PO SCH ×2 (09:08→15:10)
[2017-02-02] MEDS: guaiFENesin ER 600 MG TAB PO SCH ×2 (09:08→21:48)
--- NOTE | 2017-02-02 12:35 | PRG ---
DATE OF SERVICE: 02/02/2017 SERVICE: Pulmonary Medicine. INTERVAL HISTORY: The patient is doing fantastic from a respiratory standpoint. He is on room air a nd his saturations are doing fine. Repeat chest x-ray this morning. Otherwise, there has been no in terval change in his condition. He is going down for a cardiac catheterization today. PHYSICAL EXAMINATION: VITAL SIGNS: Afebrile, pulse 78, blood pressure 118/62, respirations 21, and saturation 95% on room air. GENERAL: Patient is awake and alert, in no apparent distress. LUNGS: Excellent air entry. There is no prolonged expiratory phase, wheezing, rhonchi, or crackles today. HEART: Normal rate, regular. ABDOMEN: Soft, nontender, nondistended. Bowel sounds are positive. MUSCULOSKELETAL: No cyanosis or clubbing. No pitting in the bilateral lower extremities. NEUROLOGIC: Grossly nonfocal. LABORATORY DATA: WBC 8.2, hemoglobin 14.5, platelets 209,000. INR 1.1. Basic metabolic profile was essentially unremarkable at this time. Urinalysis is unremarkable. SINTIA and rheumatoid factor are u nremarkable. ANCA is currently pending. Blood cultures x2 were negative. IMAGING DATA: There has been complete resolution of the right lower lobe opacification. ASSESSMENT: 1. Acute hypoxic respiratory failure, resolved. 2. Acute systolic heart failure. 3. Community-acquired pneumonia. 4. Hemoptysis, improving. PLAN: The patient is going for cardiac catheterization today. Either way, he is stable for transiti on out of the ICU to the telemetry unit. No additional followup for the lung issue is required as th e infiltrate has gone away completely suggesting that is likely not a pneumonia more likely to repres ent his heart failure condition.
--- NOTE | 2017-02-02 13:31 | PDOC.PN ---
- Subjective Encounter Start Date: 02/02/17 Encounter Start Time: 09:30 Pt seen on rounds, complaining of left sided CP, worse with inspiration and worse when I palpated the left chest wall. no F/C, no CP or SOB, tachycardia resolved, no N/V/D/C, no hemoptysis today CXR cleared out to labor relations teacher today for C with Dr Tran 10 point ROs performed and neg for all systems except as per HPI - Objective Resuscitation Status: Resuscitation Status FULL:Full Resuscitation MAR Reviewed: Yes Vital Signs & Weight: Vital Signs (12 hours) Temp Pulse Resp BP Pulse Ox 02/02/17 09:07 78 118/62 02/02/17 08:00 98.4 F 02/02/17 07:58 98.4 F 69 19 2 L 02/02/17 07:28 99 02/02/17 07:25 80 17 99 02/02/17 04:00 98.8 F Weight Weight 136 lb Most Recent Monitor Data Heart Rate from ECG 96 NIBP 118/62 NIBP BP-Mean 90 Respiration from ECG 21 SpO2 95 I&O: 02/01/17 02/02/17 02/03/17 06:59 06:59 06:59 Intake Total 1142.9 1389.6 20 Output Total 2055 3290 0 Balance -912.1 -1900.4 20 Result Diagrams: 02/02/17 03:35 02/02/17 03:35 Radiology Reviewed by me: Yes EKG Reviewed by me: Yes Phys Exam - Physical Examination Constitutional: NAD HEENT: PERRLA, moist MMs, sclera anicteric, oral pharynx no lesions Neck: no nodes, no JVD, supple, full ROM Respiratory: no wheezing, no rales, no rhonchi, clear to auscultation bilateral Cardiovascular: RRR, no significant murmur, no rub Gastrointestinal: soft, non-tender, no distention, positive bowel sounds Musculoskeletal: no edema, pulses present Neurological: non-focal, normal sensation, moves all 4 limbs Lymphatic: no nodes Psychiatric: normal affect, A&O x 3 Skin: no rash, normal turgor, cap refill <2 seconds Dx/Plan (1) CAP (community acquired pneumonia) Code(s): J18.9 - PNEUMONIA, UNSPECIFIED ORGANISM Status: Ruled-out Qualifiers: Laterality: right Lung location: middle lobe of lung Qualified Code(s): J18.1 - Lobar pneumonia, unspecified organism Comment: present on admit, CTX plus levoflox. CTX stopped, completely resolved on todays CXR. NOT pneumonia, likely asymmetric pulmonary edema form his acute systolic CHF (2) NSTEMI (non-ST elevated myocardial infarction) Code(s): I21.4 - NON-ST ELEVATION (NSTEMI) MYOCARDIAL INFARCTION Status: Acute Comment: likely from amphetamine use, intentional or otherwise, though cardiology suggested non-ischemic myocarditis. Heart cath today (3) Amphetamine abuse Code(s): F15.10 - OTHER STIMULANT ABUSE, UNCOMPLICATED Status: Acute Comment : pt denies taking intentionally (4) H/O anxiety disorder Code(s): Z86.59 - PERSONAL HISTORY OF OTHER MENTAL AND BEHAVIORAL DISORDERS Status: Acute Comment: stopped precedex, po ativan tid scheduled today, wean quickly. (5) Acute hypoxemic respiratory failure Code(s): J96.01 - ACUTE RESPIRATORY FAILURE WITH HYPOXIA Status: Resolved Comment: secondary to acute onset of systolic CHF and pulmonary edema (6) Severe sepsis Code(s): A41.9 - SEPSIS, UNSPECIFIED ORGANISM; R65.20 - SEVERE SEPSIS WITHOUT SEPTIC SHOCK Status: Resolved Comment: elevated lactate, fever, WBC, tachycardia and possible myocarditis. not due to pneumonia, ruled out (7) Hemoptysis Code(s): R04.2 - HEMOPTYSIS Status: Acute Comment: Doubt autoimmune disease. from acute pulm edema? resolved so far today - Plan cont current plan of care, continue antibiotics, PT/OT, respiratory therapy * .
[2017-02-02] MEDS ORDERED: Heparin 1000 UNIT/NS 500ML(OR) 1,000 ML ONE (14:22)
[2017-02-02] MEDS ORDERED: Heparin 10,000 UNITS/1 ML VIAL ONE (14:29)
[2017-02-02] MEDS ORDERED: Fentanyl 100 MCG/2 ML VIAL ONE (16:01)
[2017-02-02] MEDS ORDERED: Midazolam HCl 2 mg/2 ml Vial ONE (16:01)
[2017-02-02] MEDS ORDERED: Nitroglycerin 100MG/250ML BOT 250 ML ONE (16:06)
[2017-02-02] MEDS ORDERED: Protamine Sulfate 50 MG/5 ML VIAL ONE (16:15)
[2017-02-02] MEDS ORDERED: HYDROcodone/Acetaminophen 10/325 mg Tablet PO PRN (16:35)
[2017-02-02] MEDS ORDERED: Iopamidol 370 76% 100 ML VIAL ONE (17:03)
[2017-02-02] MEDS ORDERED: Iopamidol 370 76% 50 ML VIAL FS ONE (17:03)
[2017-02-02] MEDS: Furosemide 40 MG TAB PO SCH (17:19)
[2017-02-02] MEDS: Ibuprofen 600 MG TAB PO PRN (18:04)
[2017-02-02] MEDS: Lorazepam 0.5 MG TAB PO SCH (21:48)
[2017-02-03] MEDS: Sodium Chloride 0.9% 1,000 ML IV SCH ×2 (06:19→06:42)
[2017-02-03] MEDS: Ibuprofen 600 MG TAB PO PRN (06:50)
[2017-02-03] MEDS: Furosemide 40 MG TAB PO SCH (06:51)
[2017-02-03] MEDS: Carvedilol 3.125 MG TAB PO SCH ×3 (09:03→22:12)
[2017-02-03] MEDS: Lisinopril 2.5 MG TAB PO SCH ×2 (09:03→22:08)
[2017-02-03] MEDS: Lorazepam 0.5 MG TAB PO SCH ×3 (09:04→22:10)
[2017-02-03] MEDS: guaiFENesin ER 600 MG TAB PO SCH ×2 (09:04→22:11)
[2017-02-03] MEDS: Pantoprazole 40 MG VIAL IVP SCH ×3 (09:04→22:12)
--- NOTE | 2017-02-03 09:52 | PRG ---
DATE OF SERVICE: 02/03/2017 SERVICE: Pulmonary Medicine INTERVAL HISTORY: The patient is doing fine from a respiratory standpoint. He denies any current fe vers, chills, nausea, vomiting or diarrhea. Otherwise, there has been no interval change in his cond ition. He is breathing comfortably. No specific complaints or overnight events. He is returning to his usual state of health. He has been up walking around a little bit and has minimal dyspnea assoc iated with that, but his saturations are fine. PHYSICAL EXAMINATION: VITAL SIGNS: Afebrile, pulse 102, blood pressure 119/76, respirations 20, saturation 98% on room air . GENERAL: Patient is awake, alert, no apparent distress. LUNGS: Decent air entry. There is minimal dependent crackles present. HEART: Normal rate, regular. ABDOMEN: Soft, nontender, nondistended. Bowel sounds are positive. MUSCULOSKELETAL: No cyanosis or clubbing. No pitting in the bilateral lower extremities. NEUROLOGIC: Grossly nonfocal. LABORATORY DATA: WBC 8.2, hemoglobin 14.5, platelets 209,000. INR 1.0. Blood cultures x2 remain ne gative. ASSESSMENT: 1. Acute hypoxic respiratory failure, resolved. 2. Acute systolic heart failure, improving. 3. Community-acquired pneumonia less likely, but status post 7 days of community-acquired coverage. 4. Hemoptysis, improving. PLAN: The patient has no further requirements for inpatient Pulmonary Critical Care opinion. His est x-ray has cleared completely and he requires no additional chest imaging studies to look at the i nfiltrate. In the outpatient setting, he will follow up with Cardiology as directed. Please call if he decompensates.
--- NOTE | 2017-02-03 11:08 | PDOC.PN ---
- Subjective Encounter Start Date: 02/03/17 Encounter Start Time: 09:10 Pt doing well. [facility] neg for significant lesions, EF improved to 20-25%. Life vest ordered, working on funding an d may take a few days. Can be placed after discharge at home when arranged if otherwise cleared to go No F/c, no CP or SOB, no n/V/D/C, no cough, no hemoptysis. Pt still feels anxious - longstanding issue. Mom at bedside, updated to current diagnoses and plan 10 point ROS performed and neg for all systems except as per HPI - Objective Resuscitation Status: Resuscitation Status FULL:Full Resuscitation MAR Reviewed: Yes Vital Signs & Weight: Vital Signs (12 hours) Temp Pulse Resp BP Pulse Ox 02/03/17 08:54 98.1 F 102 H 20 119/76 98 02/03/17 06:57 98 02/03/17 06:55 87 16 98 02/03/17 04:00 98.0 F 80 22 H 112/70 96 02/03/17 00:00 96.9 F L 80 16 128/88 96 02/02/17 23:49 90 18 98 Weight Weight 136 lb Most Recent Monitor Data Heart Rate from ECG 87 NIBP 133/85 NIBP BP-Mean 99 Respiration from ECG 19 SpO2 98 I&O: 02/02/17 02/03/17 02/04/17 06:59 06:59 06:59 Intake Total 1389.6 2761 Output Total 3290 1040 Balance -1900.4 1721 Result Diagrams: 02/02/17 03:35 02/02/17 03:35 Radiology Reviewed by me: Yes EKG Reviewed by me: Yes Phys Exam - Physical Examination Constitutional: NAD HEENT: PERRLA, moist MMs, sclera anicteric, oral pharynx no lesions Neck: no nodes, no JVD, supple, full ROM Respiratory: no wheezing, no rales, no rhonchi, clear to auscultation bilateral Cardiovascular: RRR, no significant murmur, no rub Gastrointestinal: soft, non-tender, no distention, positive bowel sounds Musculoskeletal: no edema, pulses present Neurological: non-focal, normal sensation, moves all 4 limbs Lymphatic: no nodes Psychiatric: normal affect, A&O x 3 Skin: no rash, normal turgor, cap refill <2 seconds Dx/Plan (1) CAP (community acquired pneumonia) Code(s): J18.9 - PNEUMONIA, UNSPECIFIED ORGANISM Status: Ruled-out Qualifiers: Laterality: right Lung location: middle lobe of lung Qualified Code(s): J18.1 - Lobar pneumonia, unspecified organism Comment: present on admit, CTX plus levoflox. CTX stopped, completely resolved on todays CXR. NOT pneumonia, likely asymmetric pulmonary edema form his acute systolic CHF (2) NSTEMI (non-ST elevated myocardial infarction) Code(s): I21.4 - NON-ST ELEVATION (NSTEMI) MYOCARDIAL INFARCTION Status: Acute Comment: likely from amphetamine use, intentional or otherwise, though cardiology suggested non-ischemic myocarditis. Heart cath without stenses, improved EF. Lifevest being worked on. Home when ok with cardiology (3) Amphetamine abuse Code(s): F15.10 - OTHER STIMULANT ABUSE, UNCOMPLICATED Status: Acute Comment : pt denies taking intentionally (4) H/O anxiety disorder Code(s): Z86.59 - PERSONAL HISTORY OF OTHER MENTAL AND BEHAVIORAL DISORDERS Status: Acute Comment: Ativan 0.5 TIS, decrease to 0.5 BID,start Paxil (5) Acute hypoxemic respiratory failure Code(s): J96.01 - ACUTE RESPIRATORY FAILURE WITH HYPOXIA Status: Resolved Comment: secondary to acute onset of systolic CHF and pulmonary edema (6) Severe sepsis Code(s): A41.9 - SEPSIS, UNSPECIFIED ORGANISM; R65.20 - SEVERE SEPSIS WITHOUT SEPTIC SHOCK Status: Resolved Comment: elevated lactate, fever, WBC, tachycardia and possible myocarditis. not due to pneumonia, ruled out (7) Hemoptysis Code(s): R04.2 - HEMOPTYSIS Status: Resolved Comment: Doubt autoimmune disease. from acute pulm edema? resolved. (8) Acute systolic CHF (congestive heart failure) Code(s): I50.21 - ACUTE SYSTOLIC (CONGESTIVE) HEART FAILURE Status: Acute Comment: ef improved to 20-25% on LHC. Life vest, BBlocker, ACEI, lasix. home when ok with cardiology - Plan cont current plan of care, plan discussed w/ family, social media specialist, incentive spirometry * .
[2017-02-03 16:13] LABS: ANCA Pattern <1:20 titer (Neg:<1:20); ANCA Total <1:20 titer (Neg:<1:20); Myeloperoxidase AutoAbs <9.0 U/mL (0.0-9.0); Proteinase-3 AutoAbs Less than 3.5 U/mL (0.0-3.5)
[2017-02-04] MEDS: Sodium Chloride 0.9% 1,000 ML IV SCH (04:43)
[2017-02-04] MEDS: Ibuprofen 600 MG TAB PO PRN (07:52)
[2017-02-04] MEDS: Furosemide 40 MG TAB PO SCH (07:52)
[2017-02-04] MEDS: Lorazepam 0.5 MG TAB PO SCH ×2 (07:53→20:27)
[2017-02-04] MEDS: Pantoprazole 40 MG VIAL IVP SCH (08:12)
[2017-02-04] MEDS: Carvedilol 3.125 MG TAB PO SCH (08:45)
[2017-02-04] MEDS: guaiFENesin ER 600 MG TAB PO SCH ×2 (08:45→21:47)
[2017-02-04] MEDS: Lisinopril 2.5 MG TAB PO SCH ×2 (08:46→20:26)
[2017-02-04] MEDS: PARoxetine 20 MG TAB PO SCH (08:46)
[2017-02-04] MEDS ORDERED: Digoxin 0.5 MG/2 ML AMP SLOW IVP SCH ×2 (09:00→17:30)
[2017-02-04] MEDS ORDERED: Carvedilol 3.125 MG TAB PO SCH (10:30)
[2017-02-04] MEDS ORDERED: Lorazepam 1 MG TAB PO SCH (11:15)
[2017-02-04] MEDS: HYDROcodone/Acetaminophen 5/325 mg Tablet PO SCH ×4 (11:37→21:33)
[2017-02-04] MEDS: Ondansetron HCl/PF 4 MG/2 ML Vial IVP PRN ×3 (11:38→21:35)
[2017-02-04] MEDS ORDERED: Morphine 4 MG/ML VIAL ONE (12:41)
[2017-02-04] MEDS ORDERED: Morphine 4 MG/ML VIAL SLOW IVP SCH (13:00)
--- NOTE | 2017-02-04 13:11 | EKG ---
Test Reason : Blood Pressure : / mmHG Vent. Rate : 116 BPM Atrial Rate : 116 BPM P-R Int : 132 ms QRS Dur : 078 ms QT Int : 340 ms P-R-T Axes : 076 101 075 degrees QTc Int : 472 ms Sinus tachycardia Right atrial enlargement Rightward axis Abnormal ECG Confirmed by LARRY PARKER ([id number]) on 02/04/2017 1:10:36 PM Referred By: QASIM Confirmed By:LARRY PARKER
--- NOTE | 2017-02-04 13:12 | PDOC.PN ---
- Subjective Encounter Start Date: 02/04/17 Encounter Start Time: 09:20 Pt developed acute anxiety earlier. says he thinks he is withdrawing form pain meds, no F/C, no n/V/D/C, no CP. says he feels SOB and like he is going to . HR up to 170s, ST or SVT, cardiology aware, gave a dose of dig. okay an increase in his carvedilol. 10 point ROS performed and neg for all systems except as per HPI. sinc issa, persistently anxious despite scheduled norco 5/325 q4, and despite po ativan. gave orders for IV morphine. - Objective Resuscitation Status: Resuscitation Status FULL:Full Resuscitation MAR Reviewed: Yes Vital Signs & Weight: Vital Signs (12 hours) Temp Pulse Resp BP Pulse Ox 02/04/17 12:00 98.5 F 152 H 26 H 109/64 97 02/04/17 09:04 132 H 02/04/17 08:46 132 H 02/04/17 07:23 98 F 132 H 20 125/84 98 02/04/17 04:00 98.0 F 80 18 119/73 98 Weight Weight 136 lb Most Recent Monitor Data Heart Rate from ECG 87 NIBP 133/85 NIBP BP-Mean 99 Respiration from ECG 19 SpO2 98 I&O: 02/03/17 02/04/17 02/05/17 06:59 06:59 06:59 Intake Total 2761 1410 Output Total 1040 1450 Balance 1721 -40 Result Diagrams: 02/02/17 03:35 02/02/17 03:35 Radiology Reviewed by me: Yes EKG Reviewed by me: Yes Phys Exam - Physical Examination Constitutional: NAD very anxious HEENT: PERRLA, moist MMs, sclera anicteric, oral pharynx no lesions Neck: no nodes, no JVD, supple, full ROM Respiratory: no wheezing, no rales, no rhonchi, clear to auscultation bilateral Cardiovascular: no significant murmur, no rub tachy, regular Gastrointestinal: soft, non-tender, no distention, positive bowel sounds Musculoskeletal: no edema, pulses present Neurological: non-focal, normal sensation, moves all 4 limbs Lymphatic: no nodes Psychiatric: normal affect, A&O x 3 Skin: no rash, normal turgor, cap refill <2 seconds Dx/Plan (1) CAP (community acquired pneumonia) Code(s): J18.9 - PNEUMONIA, UNSPECIFIED ORGANISM Status: Ruled-out Qualifiers: Laterality: right Lung location: middle lobe of lung Qualified Code(s): J18.1 - Lobar pneumonia, unspecified organism Comment: present on admit, CTX plus levoflox. CTX stopped, completely resolved on todays CXR. NOT pneumonia, likely asymmetric pulmonary edema form his acute systolic CHF (2) NSTEMI (non-ST elevated myocardial infarction) Code(s): I21.4 - NON-ST ELEVATION (NSTEMI) MYOCARDIAL INFARCTION Status: Acute Comment: likely from amphetamine use, intentional or otherwise, though cardiology suggested non-ischemic myocarditis. Heart cath without stenses, improved EF. Lifevest being worked on. Home when ok with cardiology (3) Amphetamine abuse Code(s): F15.10 - OTHER STIMULANT ABUSE, UNCOMPLICATED Status: Acute Comment : pt denies taking intentionally (4) H/O anxiety disorder Code(s): Z86.59 - PERSONAL HISTORY OF OTHER MENTAL AND BEHAVIORAL DISORDERS Status: Acute Comment: Ativan 0.5 TIS, decrease to 0.5 BID,start Paxil (5) Acute hypoxemic respiratory failure Code(s): J96.01 - ACUTE RESPIRATORY FAILURE WITH HYPOXIA Status: Resolved Comment: secondary to acute onset of systolic CHF and pulmonary edema (6) Severe sepsis Code(s): A41.9 - SEPSIS, UNSPECIFIED ORGANISM; R65.20 - SEVERE SEPSIS WITHOUT SEPTIC SHOCK Status: Resolved Comment: elevated lactate, fever, WBC, tachycardia and possible myocarditis. not due to pneumonia, ruled out (7) Hemoptysis Code(s): R04.2 - HEMOPTYSIS Status: Resolved Comment: Doubt autoimmune disease. from acute pulm edema? resolved. (8) Acute systolic CHF (congestive heart failure) Code(s): I50.21 - ACUTE SYSTOLIC (CONGESTIVE) HEART FAILURE Status: Acute Comment: ef improved to 20-25% on LHC. Life vest, BBlocker, ACEI, lasix. home when ok with cardiology (9) Narcotic addiction Code(s): F11.20 - OPIOID DEPENDENCE, UNCOMPLICATED Status: Acute Comment: pt seems ot be actively withdrawing. IV morphine, monitor (10) Benzodiazepine abuse, episodic Code(s): F13.10 - SEDATIVE, HYPNOTIC OR ANXIOLYTIC ABUSE, UNCOMPLICATED Status : Acute Comment: pt being weaned down, given extra today - Plan cont current plan of care * .
[2017-02-04] MEDS: Carvedilol 6.25 MG TAB PO SCH (17:10)
[2017-02-05] MEDS: Ondansetron HCl/PF 4 MG/2 ML Vial IVP PRN ×5 (03:35→23:29)
[2017-02-05] MEDS: HYDROcodone/Acetaminophen 5/325 mg Tablet PO SCH ×6 (03:35→22:35)
[2017-02-05] MEDS ORDERED: Sodium Chloride 0.9% 500 ML IVPB SCH (04:15)
[2017-02-05] MEDS: Sodium Chloride 0.9% 1,000 ML IV SCH ×3 (04:49→20:35)
[2017-02-05 05:46] LABS: Anion Gap 27 mmol/L (10-20); BUN (Urea Nitrogen) 39 mg/dL (8.9-20.6); Calc. Creatinine Clearance 20 mL/min (70-130); Carbon Dioxide 20 mmol/L (22-29); Chloride 93 mmol/L (98-107); Estimated GFR-MDRD 15; Magnesium 2.9 mg/dL (1.6-2.6)
[2017-02-05 06:07] LABS: Band 7 % (5-11); Hematocrit 56.8 % (42.0-52.0); Mean Platelet Volume 8.7 fL (7.4-10.4); Neutrophil 76 % (42-75); Red Blood Cell (RBC) Count 5.87 mill/uL (4.70-6.10)
--- NOTE | 2017-02-05 07:51 | RAD ---
AP VIEW CHEST: HISTORY: Shortness of breath. FINDINGS: AP view chest was obtained on 02/05/17. Comparison is made to previous exam from 02/02/17. AP view chest demonstrates the lungs to be well aerated. No evidence of active intrathoracic disease is seen. No evidence of effusions, pneumonia, or pneumothorax seen. IMPRESSION: Unremarkable AP view chest. POS: [facility]
[2017-02-05 08:12] LABS: Anion Gap 25 mmol/L (10-20); BUN (Urea Nitrogen) 40 mg/dL (8.9-20.6); CK (CPK) 168 U/L (30-200); Calc. Creatinine Clearance 19 mL/min (70-130); Calcium 11.6 mg/dL (7.8-10.44); Carbon Dioxide 17 mmol/L (22-29); Chloride 96 mmol/L (98-107); Estimated GFR-MDRD 14
[2017-02-05 08:28] LABS: Troponin I 2.487 ng/mL (< 0.028)
[2017-02-05 08:53] LABS: Methamphetamine Not Detected (NotDetected)
[2017-02-05 08:54] LABS: Amphetamine Not Detected (NotDetected); Methadone Not Detected (NotDetected)
[2017-02-05] MEDS ORDERED: Digoxin 0.25 MG TAB PO SCH (09:00)
--- NOTE | 2017-02-05 09:18 | ULT ---
ULTRASOUND RENAL BILATERAL STANDARD: Date: 02/05/17 HISTORY: Acute renal failure. COMPARISON: None. FINDINGS: The right kidney measures 9.5 x 4.4 x 5.1 cm. The left kidney measures 9.3 x 5.2 x 4.4 cm. No mass, h ydronephrosis, or abnormal calcifications. Urinary bladder is decompressed. IMPRESSION: No evidence of obstructive uropathy. POS: [facility]
[2017-02-05] MEDS: guaiFENesin ER 600 MG TAB PO SCH ×3 (09:23→20:37)
[2017-02-05] MEDS: Carvedilol 6.25 MG TAB PO SCH ×2 (09:23→18:25)
[2017-02-05] MEDS: Lorazepam 0.5 MG TAB PO SCH ×2 (09:24→20:33)
[2017-02-05] MEDS: PARoxetine 20 MG TAB PO SCH (09:24)
[2017-02-05] MEDS: Furosemide 40 MG TAB PO SCH (09:25)
[2017-02-05] MEDS ORDERED: Sodium Chloride 0.9% 500 ML IV SCH (09:30)
[2017-02-05] MEDS ORDERED: Sodium Bicarbonate Tab 325 MG TAB PO SCH (11:00)
--- NOTE | 2017-02-05 11:36 | PDOC.PN ---
- Subjective Encounter Start Date: 02/05/17 Encounter Start Time: 08:[address] overnight, refusing life vest while here. No F/C, no N/V since last evening, no CP. c/O abd cramps, no urine in 24 hours, no cough or sputum CXR clear. Labs with leukocytosis and vastly increased Cr. Pt less anxious this morning 10 point ROS performed and neg for all systems except as per HPI. Case discussed with Dr Mccoy and with Dr Bobo wilburn Nephrology. - Objective Resuscitation Status: Resuscitation Status FULL:Full Resuscitation MAR Reviewed: Yes Vital Signs & Weight: Vital Signs (12 hours) Temp Pulse Resp BP BP BP Pulse Ox 02/05/17 09:23 101/62 02/05/17 09:05 97.7 F 136 H 19 101/62 100 02/05/17 04:26 136 H 16 116/68 02/05/17 04:00 98.4 F 144 H 20 93/54 L 98 02/04/17 23:52 98.1 F 151 H 18 82/48 L 97 Weight Weight 136 lb Most Recent Monitor Data Heart Rate from ECG 87 NIBP 133/85 NIBP BP-Mean 99 Respiration from ECG 19 SpO2 98 I&O: 02/04/17 02/05/17 02/06/17 06:59 06:59 06:59 Intake Total 1410 1040 Output Total 1450 30 Balance -40 1010 Result Diagrams: 02/05/17 04:54 02/05/17 07:32 Radiology Reviewed by me: Yes EKG Reviewed by me: Yes Phys Exam - Physical Examination Constitutional: NAD HEENT: PERRLA, moist MMs, sclera anicteric, oral pharynx no lesions Neck: no nodes, no JVD, supple, full ROM Respiratory: no wheezing, no rales, no rhonchi, clear to auscultation bilateral Cardiovascular: no significant murmur, no rub tachy, regular Gastrointestinal: soft, no distention, positive bowel sounds mildly tender diffusely. no r/r/G Musculoskeletal: no edema, pulses present Neurological: non-focal, normal sensation, moves all 4 limbs Lymphatic: no nodes Psychiatric: A&O x 3 Skin: no rash, normal turgor, cap refill <2 seconds Dx/Plan (1) NSTEMI (non-ST elevated myocardial infarction) Code(s): I21.4 - NON-ST ELEVATION (NSTEMI) MYOCARDIAL INFARCTION Status: Acute Comment: likely from amphetamine use, intentional or otherwise, though cardiology suggested non-ischemic myocarditis. Heart cath without stenses, improved EF. Lifevest being worked on. Home when ok with cardiology (2) Amphetamine abuse Code(s): F15.10 - OTHER STIMULANT ABUSE, UNCOMPLICATED Status: Acute Comment : pt denies taking intentionally (3) H/O anxiety disorder Code(s): Z86.59 - PERSONAL HISTORY OF OTHER MENTAL AND BEHAVIORAL DISORDERS Status: Acute Comment: Ativan 0.5 TID, decreased to 0.5 BID,started Paxil (4) Acute hypoxemic respiratory failure Code(s): J96.01 - ACUTE RESPIRATORY FAILURE WITH HYPOXIA Status: Resolved Comment: secondary to acute onset of systolic CHF and pulmonary edema (5) Severe sepsis Code(s): A41.9 - SEPSIS, UNSPECIFIED ORGANISM; R65.20 - SEVERE SEPSIS WITHOUT SEPTIC SHOCK Status: Resolved Comment: elevated lactate, fever, WBC, tachycardia and possible myocarditis. not due to pneumonia, ruled out (6) Hemoptysis Code(s): R04.2 - HEMOPTYSIS Status: Resolved Comment: Doubt autoimmune disease. from acute pulm edema? resolved. (7) Acute systolic CHF (congestive heart failure) Code(s): I50.21 - ACUTE SYSTOLIC (CONGESTIVE) HEART FAILURE Status: Acute Comment: ef improved to 20-25% on [facility]. Life vest, BBlocker, ACEI, lasix. home when ok with cardiology (8) Narcotic addiction Code(s): F11.20 - OPIOID DEPENDENCE, UNCOMPLICATED Status: Acute Comment: less anxiosu today. abd pain slightly better. (9) Benzodiazepine abuse, episodic Code(s): F13.10 - SEDATIVE, HYPNOTIC OR ANXIOLYTIC ABUSE, UNCOMPLICATED Status : Acute Comment: pt being weaned down, given extra yesterday (10) CHRISTOPH (acute kidney injury) Code(s): N17.9 - ACUTE KIDNEY FAILURE, UNSPECIFIED Status: Acute (11) Contrast dye induced nephropathy Code(s): T50.8X1A - POISONING BY DIAGNOSTIC AGENTS, ACCIDENTAL, INIT; N14.1 - NEPHROPATHY INDUCED BY OTH DRUG/MEDS/BIOL SUBST Status: Acute Comment: from [facility]. Cr 4.7-4.9 today. Nephrology consulted, 500cc bolus ordered, lasix held, renal u/s neg, FENa pending. nephrology agreed - Plan cont current plan of care, plan discussed w/ family, PT/OT, social work professor, out of bed/ambulate * .
--- NOTE | 2017-02-05 12:27 | CON ---
DATE OF CONSULTATION: 02/05/2017 REASON FOR CONSULTATION: Elevated creatinine. HISTORY OF PRESENT ILLNESS: A 31-year-old gentleman who presented to the hospital after hemoptysis a nd history of drug use. The patient uses marijuana and amphetamines. His baseline creatinine was 0. 8 on 02/01/2017 and has increased to 4.7 today. The patient denies headache, numbness, tingling or w eakness. The patient has severe congestive heart failure, low blood pressure as well as an elevated troponin. PAST MEDICAL HISTORY: Peptic ulcer disease, seizure, marijuana use and substance abuse, history of j aw repair. HOME MEDICATIONS: List reviewed. ALLERGIES: Reviewed. FAMILY HISTORY: Negative for ESRD. SOCIAL HISTORY: No alcohol or drug use. REVIEW OF SYSTEMS: Fifteen point review of systems was performed and negative except positives noted above. GENERAL: Weakness- HEAD: Headache- NECK: No swelling or lumps. NOSE: No epistaxis or discharge. EYES: No diplopia or pain. RESPIRATORY: Dyspnea- CARDIOVASCULAR: Chest pain- GASTROINTESTINAL: Nausea- /FLOOR [employer]SEM[employer]ER: Hematuria- MUSCULOSKELETAL: No joint pain. NEUROPSYCHIATIC SYSTEMS: No suicidal ideation. No ideation. SKIN: Denies any rash or ulcer. CONSTITUTIONAL: No fever or chills. PHYSICAL EXAMINATION: GENERAL: Patient is awake, alert. VITAL SIGNS: Afebrile, pulse 136, blood pressure 101/62. OBJECTIVE: See above. Awake, alert, in no acute distress. GENERAL APPEARANCE AND MENTAL STATUS: Fair. HEAD/NECK: Normocephalic. Atraumatic. EYES: EOMI. No deformity. EARS: Clear. No ulcers. NOSE: Intact. No lesions. MOUTH: Clear. No discharge. THROAT: Clear. No exudate. LUNGS: Clear. No crackles. CARDIAC: S1, S2. No rub. ABDOMEN: Benign. BS+. GENITALIA/RECTUM: Aguiar absent. BACK/EXTREMITIES: Edema 0+ Ulcer- NEUROLOGICAL: Alert and motor intact. SKIN: Rash- Bruise- LYMPHATICS: Edema- Ulcer- LABORATORY: Potassium 4.5, creatinine is 4.9. ASSESSMENT AND RECOMMENDATIONS: 1. Acute kidney injury with chronic kidney disease, multifactorial with a history of congestive hear t failure, cardiac catheterization and myocardial infarction. All of those could be contributing fac tors. Contributing factors could be the fact the patient has a long history of Prilosec use. We wing l continue hydration. 2. Metabolic acidosis. Give sodium bicarbonate. No indication for dialysis at this time. I will follow renal imaging.
[2017-02-05 12:52] VITALS: BMI 21.2
--- NOTE | 2017-02-05 13:15 | CT ---
CT ABDOMEN NONCONTRAST CT PELVIS NONCONTRAST: DATE: 02/05/17. HISTORY: A 31-year-old male with generalized abdominal pain, nausea, vomiting, and acute kidney injury. COMPARISON: None. TECHNIQUE: No IV contrast. Oral contrast administered. FINDINGS: Lung bases are clear. No pleural effusion. Enteric contrast material is present in the somewhat dis tended stomach, and throughout nondilated jejunum and ileum, which appear normal. The appendix is no rmal. There is a large volume of stool throughout the entire colon. No renal calculi. No hydroneph rosis. No bladder calculus. No signs of acute colonic diverticulitis. Within the limitations of a noncontrast scan, no obvious abnormality is identified involving the kidneys, abdominal aorta, adrena ls, pancreas, liver, or spleen. There is a thin, fine layer of moderately hyperdense material at the dependent portion of the lumen of the gallbladder fundus and body. No pericholecystic edema. IMPRESSION: 1. Evidence for constipation. 2. Fine layer of numerous tiny gallstones versus dense gallbladder sludge. POS: [facility]
[2017-02-05] MEDS ORDERED: Polyethylene Glycol 3350 17 GM Packet PO SCH (14:30)
--- NOTE | 2017-02-05 15:52 | EKG ---
Test Reason : Blood Pressure : / mmHG Vent. Rate : 130 BPM Atrial Rate : 130 BPM P-R Int : 130 ms QRS Dur : 080 ms QT Int : 308 ms P-R-T Axes : 079 101 018 degrees QTc Int : 453 ms Sinus tachycardia Right atrial enlargement Rightward axis ST abnormality and T wave abnormality, consider inferior ischemia Abnormal ECG Confirmed by LARRY PARKER ([id number]) on 02/05/2017 3:52:22 PM Referred By: MARTIN Confirmed By:LARRY PARKER
[2017-02-05 16:24] LABS: Critical Call CKMBM RESULT DECREASING; Critical Call Chem Troponin I RESULT DECREASING; Troponin I 1.376 ng/mL (< 0.028)
[2017-02-05] MEDS: Sodium Bicarbonate Tab 325 MG TAB PO SCH (20:33)
[2017-02-05 23:54] LABS: Critical Call CKMBM RESULT DECREASING; Critical Call Chem Troponin I RESULT DECREASING; Troponin I 1.062 ng/mL (< 0.028)
[2017-02-06] MEDS: HYDROcodone/Acetaminophen 5/325 mg Tablet PO SCH ×6 (02:23→21:49)
[2017-02-06] MEDS: Ondansetron HCl/PF 4 MG/2 ML Vial IVP PRN ×5 (03:28→18:35)
[2017-02-06 05:44] LABS: Anion Gap 20 mmol/L (10-20); BUN (Urea Nitrogen) 47 mg/dL (8.9-20.6); Calc. Creatinine Clearance 29 mL/min (70-130); Calcium 10.3 mg/dL (7.8-10.44); Carbon Dioxide 19 mmol/L (22-29); Chloride 99 mmol/L (98-107); Estimated GFR-MDRD 23; Magnesium 2.2 mg/dL (1.6-2.6)
[2017-02-06 06:16] LABS: Band 1 % (5-11); Hematocrit 47.3 % (42.0-52.0); Mean Platelet Volume 8.6 fL (7.4-10.4); Neutrophil 69 % (42-75); Reactive Lymphocytes 2 % (0-10); Red Blood Cell (RBC) Count 4.91 mill/uL (4.70-6.10); White Blood Cell (WBC) Count 23.8 thou/uL (4.8-10.8)
[2017-02-06] MEDS: Sodium Chloride 0.9% 1,000 ML IV SCH ×3 (06:19→23:30)
[2017-02-06] MEDS: PARoxetine 20 MG TAB PO SCH (08:14)
[2017-02-06] MEDS: Lorazepam 0.5 MG TAB PO SCH ×2 (08:14→20:46)
[2017-02-06] MEDS: Sodium Bicarbonate Tab 325 MG TAB PO SCH ×2 (08:14→20:46)
[2017-02-06] MEDS: guaiFENesin ER 600 MG TAB PO SCH ×2 (08:15→20:46)
[2017-02-06] MEDS: Polyethylene Glycol 3350 17 GM Packet PO SCH (08:15)
[2017-02-06] MEDS: Carvedilol 3.125 MG TAB PO SCH ×2 (08:15→17:41)
--- NOTE | 2017-02-06 10:05 | PRG ---
DATE OF SERVICE: 02/06/2017 SUBJECTIVE: This is a 31-year-old gentleman being seen for acute kidney injury. The patient denies any nausea, vomiting or chest pain. PHYSICAL EXAMINATION: GENERAL: Patient is awake, alert. VITAL SIGNS: Afebrile, pulse 87, breathing at 16, blood pressure 134/83. HEAD/NECK: Normocephalic. Atraumatic. EYES: EOMI. No deformity. EARS: Clear. No ulcers. NOSE: Intact. No lesions. MOUTH: Clear. No discharge. THROAT: Clear. No exudate. LUNGS: Clear. No crackles. CARDIAC: S1, S2. No rub. ABDOMEN: Benign. BS+. GENITALIA/RECTUM: Aguiar absent. BACK/EXTREMITIES: Edema 0+ Ulcer- NEUROLOGICAL: Alert and motor intact. SKIN: Rash- Bruise- LYMPHATICS: Edema- Ulcer- LABORATORY DATA: Show creatinine 3.1, bicarbonate 19. ASSESSMENT AND RECOMMENDATIONS: 1. Acute kidney injury, improved. 2. Metabolic acidosis. 3. Hyponatremia, improved. No indication for dialysis. Continue current management and care.
[2017-02-06] MEDS ORDERED: Metoclopramide HCl 10 MG/2 ML VIAL IVP SCH (10:30)
--- NOTE | 2017-02-06 12:04 | PDOC.PN ---
- Subjective Encounter Start Date: 02/06/17 Encounter Start Time: 09:45 Pt feeling better, less anxiosu, no f/c, no D/C, still nauseated with o, no eating or drinking much, throws up po meds after taking them. asking for IV pain and anxiety meds, asking for IV phenergan. I explained to him that i was not going to feed his addiction with IV medications. IV reglan ordered no CP, other events. Case discussed with Nephrology 10 point ROS performed and neg for all systems except as per HPI - Objective Resuscitation Status: Resuscitation Status FULL:Full Resuscitation MAR Reviewed: Yes Vital Signs & Weight: Vital Signs (12 hours) Temp Pulse Resp BP Pulse Ox 02/06/17 07:33 98.2 F 87 16 134/83 98 02/06/17 04:10 97 02/06/17 02:50 99.1 F 132 H 18 122/69 97 02/06/17 00:23 97 Weight Admit Weight 136 lb Weight 131 lb 6.4 oz Most Recent Monitor Data Heart Rate from ECG 87 NIBP 133/85 NIBP BP-Mean 99 Respiration from ECG 19 SpO2 98 I&O: 02/05/17 02/06/17 02/07/17 06:59 06:59 06:59 Intake Total 1040 2899 Output Total 30 300 Balance 1010 2599 Result Diagrams: 02/06/17 04:07 02/06/17 04:07 Radiology Reviewed by me: Yes EKG Reviewed by me: Yes Phys Exam - Physical Examination Constitutional: NAD HEENT: PERRLA, moist MMs, sclera anicteric, oral pharynx no lesions Neck: no nodes, no JVD, supple, full ROM Respiratory: no wheezing, no rales, no rhonchi, clear to auscultation bilateral Cardiovascular: RRR, no significant murmur, no rub Gastrointestinal: soft, non-tender, no distention, positive bowel sounds anterior abd wall with reg reticular discoloration from heating pad Musculoskeletal: no edema, pulses present Neurological: non-focal, normal sensation, moves all 4 limbs Lymphatic: no nodes Psychiatric: normal affect, A&O x 3 Skin: no rash, normal turgor, cap refill <2 seconds Dx/Plan (1) NSTEMI (non-ST elevated myocardial infarction) Code(s): I21.4 - NON-ST ELEVATION (NSTEMI) MYOCARDIAL INFARCTION Status: Acute Comment: likely from amphetamine use, intentional or otherwise, though cardiology suggested non-ischemic myocarditis. Heart cath without stenses, improved EF. Lifevest being worked on. Home when ok with cardiology. Troponins bumped up during he anxiety/renal failure episdoe. trending back down (2) Amphetamine abuse Code(s): F15.10 - OTHER STIMULANT ABUSE, UNCOMPLICATED Status: Acute Comment : pt denies taking intentionally (3) H/O anxiety disorder Code(s): Z86.59 - PERSONAL HISTORY OF OTHER MENTAL AND BEHAVIORAL DISORDERS Status: Acute Comment: Ativan 0.5 TID, decreased to 0.5 BID,started Paxil (4) Acute hypoxemic respiratory failure Code(s): J96.01 - ACUTE RESPIRATORY FAILURE WITH HYPOXIA Status: Resolved Comment: secondary to acute onset of systolic CHF and pulmonary edema (5) Severe sepsis Code(s): A41.9 - SEPSIS, UNSPECIFIED ORGANISM; R65.20 - SEVERE SEPSIS WITHOUT SEPTIC SHOCK Status: Resolved Comment: elevated lactate, fever, WBC, tachycardia and possible myocarditis. not due to pneumonia, ruled out (6) Hemoptysis Code(s): R04.2 - HEMOPTYSIS Status: Resolved Comment: Doubt autoimmune disease. from acute pulm edema? resolved. (7) Acute systolic CHF (congestive heart failure) Code(s): I50.21 - ACUTE SYSTOLIC (CONGESTIVE) HEART FAILURE Status: Acute Comment: ef improved to 20-25% on [facility]. Life vest, BBlocker, ACEI, lasix. home when ok with cardiology (8) Narcotic addiction Code(s): F11.20 - OPIOID DEPENDENCE, UNCOMPLICATED Status: Acute Comment: less anxiosu today. abd pain slightly better. (9) Benzodiazepine abuse, episodic Code(s): F13.10 - SEDATIVE, HYPNOTIC OR ANXIOLYTIC ABUSE, UNCOMPLICATED Status : Acute Comment: pt being weaned down, given extra yesterday (10) CHRISTOPH (acute kidney injury) Code(s): N17.9 - ACUTE KIDNEY FAILURE, UNSPECIFIED Status: Acute (11) Contrast dye induced nephropathy Code(s): T50.8X1A - POISONING BY DIAGNOSTIC AGENTS, ACCIDENTAL, INIT; N14.1 - NEPHROPATHY INDUCED BY OTH DRUG/MEDS/BIOL SUBST Status: Acute Comment: from [facility]. Cr 4.7-4.9 down to 3.12 resume IV fluids. - Plan cont current plan of care, plan discussed w/ family, PT/OT, out of bed/ambulate * .
[2017-02-06] MEDS: Metoclopramide HCl 10 MG/2 ML VIAL IVP SCH ×3 (12:25→20:46)
[2017-02-07 05:24] LABS: Anion Gap 11 mmol/L (10-20); BUN (Urea Nitrogen) 25 mg/dL (8.9-20.6); Calc. Creatinine Clearance 85 mL/min (70-130); Calcium 9.5 mg/dL (7.8-10.44); Carbon Dioxide 25 mmol/L (22-29); Chloride 106 mmol/L (98-107); Estimated GFR-MDRD 81; Magnesium 2.2 mg/dL (1.6-2.6)
[2017-02-07] MEDS: HYDROcodone/Acetaminophen 5/325 mg Tablet PO SCH ×6 (05:47→23:01)
[2017-02-07 06:10] LABS: Band 1 % (5-11); Hematocrit 40.6 % (42.0-52.0); Mean Platelet Volume 8.4 fL (7.4-10.4); Neutrophil 68 % (42-75); Red Blood Cell (RBC) Count 4.12 mill/uL (4.70-6.10); White Blood Cell (WBC) Count 10.9 thou/uL (4.8-10.8)
[2017-02-07] MEDS: Sodium Bicarbonate Tab 325 MG TAB PO SCH ×2 (08:47→20:30)
[2017-02-07] MEDS: Sodium Chloride 0.9% 1,000 ML IV SCH (08:47)
[2017-02-07] MEDS: PARoxetine 20 MG TAB PO SCH (08:48)
[2017-02-07] MEDS: Lorazepam 0.5 MG TAB PO SCH ×2 (08:48→20:30)
[2017-02-07] MEDS: Metoclopramide HCl 10 MG/2 ML VIAL IVP SCH ×4 (08:48→20:31)
[2017-02-07] MEDS: Carvedilol 3.125 MG TAB PO SCH (08:48)
[2017-02-07] MEDS: Polyethylene Glycol 3350 17 GM Packet PO SCH (08:49)
[2017-02-07] MEDS: guaiFENesin ER 600 MG TAB PO SCH ×2 (08:49→20:30)
[2017-02-07] MEDS: Ondansetron HCl/PF 4 MG/2 ML Vial IVP PRN ×2 (10:19→14:35)
--- NOTE | 2017-02-07 14:42 | PDOC.PN ---
- Subjective Encounter Start Date: 02/07/17 Encounter Start Time: 09:40 Pt seen for followup re: nausea and vomiting. Feels better. No chest pain. - Objective Resuscitation Status: Resuscitation Status FULL:Full Resuscitation Vital Signs & Weight: Vital Signs (12 hours) Temp Pulse Resp BP BP Pulse Ox 02/07/17 12:00 98.8 F 89 20 137/90 98 02/07/17 08:45 98.4 F 89 18 98 02/07/17 08:43 98.4 F 89 18 147/73 H 98 02/07/17 04:00 98.1 F 55 L 15 133/76 97 Weight Admit Weight 136 lb Weight 133 lb 11.2 oz Most Recent Monitor Data Heart Rate from ECG 87 NIBP 133/85 NIBP BP-Mean 99 Respiration from ECG 19 SpO2 98 I&O: 02/06/17 02/07/17 02/08/17 06:59 06:59 06:59 Intake Total 2899 3640 Output Total 300 920 Balance 2599 2720 Result Diagrams: 02/07/17 04:04 02/07/17 04:04 Phys Exam - Physical Examination Constitutional: NAD HEENT: moist MMs Neck: supple Respiratory: clear to auscultation bilateral Cardiovascular: RRR Gastrointestinal: soft Neurological: moves all 4 limbs Psychiatric: normal affect Skin: no rash Dx/Plan (1) Nausea Code(s): R11.0 - NAUSEA Status: Acute (2) Nonischemic cardiomyopathy Code(s): I42.8 - OTHER CARDIOMYOPATHIES Status: Acute (3) Amphetamine abuse Code(s): F15.10 - OTHER STIMULANT ABUSE, UNCOMPLICATED Status: Chronic Comment: pt denies taking intentionally (4) CHRISTOPH (acute kidney injury) Code(s): N17.9 - ACUTE KIDNEY FAILURE, UNSPECIFIED Status: Resolved - Plan * . nausea improving. Awaiting Life Vest. Creatinine normal today Review of Systems - Review of Systems Cardiovascular: negative: chest pain, palpitations, orthopnea, paroxysmal nocturnal dyspnea, edema, light headedness Gastrointestinal: Nausea. negative: Vomiting, Abdominal Pain, Diarrhea, Constipation, Melena, Hematochezia - Medications/Allergies Allergies/Adverse Reactions: Allergies Allergy/AdvReac Type Severity Reaction Status Date / Time No Known Allergies Allergy Verified 01/29/17 17:58 Medications: Current Medications Acetaminophen (Tylenol) 650 mg PO Q4H PRN PRN Reason: Headache/Fever or Pain Last Admin: 02/03/17 16:46 Dose: 650 mg Hydrocodone Bitart/Acetaminophen (Manquin 5/325) 1 tab PO Q4H [facility] Last Admin: 02/07/17 14:35 Dose: 1 tab Albuterol/Ipratropium (Duoneb) 3 ml NEB [id number] [facility] Last Admin: 02/07/17 13:00 Dose: Not Given Carvedilol (Coreg) 3.125 mg PO BID-WM [facility] Last Admin: 02/07/17 08:48 Dose: 3.125 mg Guaifenesin (Mucinex) 1,200 mg PO Q12HR [facility] Last Admin: 02/07/17 08:49 Dose: Not Given Sodium Chloride (Normal Saline 0.9%) 1,000 mls @ 100 mls/hr IV .Q10H [facility] Last Admin: 02/07/17 08:47 Dose: 1,000 mls Lorazepam (Ativan) 0.5 mg PO BID [facility] Last Admin: 02/07/17 08:48 Dose: 0.5 mg Metoclopramide HCl (Reglan) 10 mg IVP ACHS [facility] Last Admin: 02/07/17 13:22 Dose: 10 mg Ondansetron HCl (Zofran) 4 mg IVP Q4H PRN PRN Reason: Nausea/Vomiting Last Admin: 02/07/17 14:35 Dose: 4 mg Pantoprazole Sodium (Protonix) 40 mg PO Q12HR [facility] Last Admin: 02/07/17 08:48 Dose: 40 mg Paroxetine HCl (Paxil) 20 mg PO DAILY [facility] Last Admin: 02/07/17 08:48 Dose: 20 mg Polyethylene Glycol (Miralax) 17 gm PO DAILY [facility] Last Admin: 02/07/17 08:49 Dose: Not Given Sodium Bicarbonate (Bicarbonate, Sodium) 650 mg PO BID [facility] Last Admin: 02/07/17 08:47 Dose: 650 mg Sodium Chloride (Flush - Normal Saline) 10 ml IVF Q12HR [facility] Last Admin: 02/07/17 08:49 Dose: 10 ml Sodium Chloride (Flush - Normal Saline) 10 ml IVF PRN PRN PRN Reason: Saline Flush Last Admin: 02/06/17 10:58 Dose: 10 ml
[2017-02-07] MEDS: Carvedilol 6.25 MG TAB PO SCH (18:30)
--- NOTE | 2017-02-07 19:55 | PRG ---
DATE OF SERVICE: 02/07/2017 NEPHROLOGY PROGRESS NOTE SUBJECTIVE: Patient was seen and examined at bedside and overnight events noted. Patient denies any shortness of breath or chest pain or palpitation. No history of nausea or vomiting or diarrhea or f ever or chills or cramps. OBJECTIVE: GENERAL: This is a well-built male in no apparent distress. VITAL SIGNS: Temperature 98.6, pulse 69, respiratory rate 18, blood pressure 141/92. HEENT: Atraumatic, normocephalic. Oral mucosa is moist. NECK: Supple. CARDIOVASCULAR: S1, S2 heard. Rate and rhythm regular. RESPIRATORY: Clear to auscultation. GASTROINTESTINAL: Abdomen is soft. MUSCULOSKELETAL: No tenderness, no edema. DERMATOLOGIC: No skin rash. NEUROLOGIC: Alert and awake and oriented x3. No focal neurologic deficits. Moving all the extremit ies. PSYCHIATRIC: Mood and affect normal. LABORATORY DATA: Potassium is 4.1, BUN is 25, creatinine is 1.05. ASSESSMENT AND PLAN: 1. Acute kidney injury, much improved. 2. Acidosis. 3. Hyponatremia, better. 4. Hypertension, stable. 5. Overall, renal function is better, back to baseline. I will sign off. Please call back with any questions.
[2017-02-08] MEDS: HYDROcodone/Acetaminophen 5/325 mg Tablet PO SCH ×3 (03:59→09:44)
[2017-02-08] MEDS: Ondansetron HCl/PF 4 MG/2 ML Vial IVP PRN (04:46)
[2017-02-08 06:29] LABS: Anion Gap 13 mmol/L (10-20); BUN (Urea Nitrogen) 16 mg/dL (8.9-20.6); Calc. Creatinine Clearance 86 mL/min (70-130); Calcium 9.5 mg/dL (7.8-10.44); Carbon Dioxide 23 mmol/L (22-29); Chloride 103 mmol/L (98-107); Estimated GFR-MDRD 81
[2017-02-08] MEDS: Metoclopramide HCl 10 MG/2 ML VIAL IVP SCH ×2 (08:27→12:04)
[2017-02-08] MEDS: Sodium Bicarbonate Tab 325 MG TAB PO SCH (08:27)
[2017-02-08] MEDS: Lorazepam 0.5 MG TAB PO SCH (08:28)
[2017-02-08] MEDS: PARoxetine 20 MG TAB PO SCH (08:28)
[2017-02-08] MEDS: Carvedilol 6.25 MG TAB PO SCH (08:28)
[2017-02-08] MEDS: Polyethylene Glycol 3350 17 GM Packet PO SCH (08:29)
[2017-02-08] MEDS: guaiFENesin ER 600 MG TAB PO SCH (08:29)
[2017-02-08] MEDS ORDERED: Lisinopril 2.5 MG TAB PO SCH (09:00)
--- NOTE | 2017-02-08 09:36 | DIS ---
DATE OF ADMISSION: 01/29/2017 DATE OF DISCHARGE: 02/08/2017 PRIMARY CARE PROVIDER: [facility] DISCHARGE DIAGNOSES: 1. Nonischemic cardiomyopathy. 2. Contrast-induced nephropathy, resolved. 3. Nausea and vomiting, resolved. CONDITION OF PATIENT ON THE DAY OF DISCHARGE: Stable. I assessed Mr. Maloney on the day of dischar . He denies any chest pain or shortness of breath. He denies any abdominal pain. Vital signs are stable. S1 and S2 are heard, regular. Lungs clear to auscultation bilaterally. INVESTIGATIONS DURING THIS HOSPITALIZATION: A 2D echocardiogram on 01/29/2017, which showed left reuben tricular ejection fraction of 15%-20% and normal left ventricular size. He had normal right ventricu lar size and function. Coronary angiography on 02/02/2017, which showed normal LMCA, normal LAD, normal left circumflex, and normal RCA. Renal ultrasound on 02/05/2017, which did not reveal any obstructive uropathy. CT scan of the abdomen and pelvis done with oral contrast, but no IV contrast, showed evidence for co nstipation and fine layer of numerous tiny gallstones versus dense gallbladder sludge. HOSPITAL COURSE: Mr. Maloney is a pleasant 31-year-old gentleman who was admitted to [facility] on 01/30/2017 for suspected non-ST elevation myocardial infarction, right middle and lower lobe pneumonia and polysubstance abuse. He was seen by Cardiology and Pulmonology Services . He received antibiotics. Because of elevated troponins, he underwent cardiac catheterization on 04/05/2016, result as described above. On 02/05/2017, his creatinine increased to 4.7 from 0.9 on . He was seen by Nephrology Service for possible contrast-induced nephropathy. He received i ntravenous fluids. His creatinine normalized to 1.06 on 02/07/2017. He has been started on jane and LETITIA inhibitor. He was fitted with a LifeVest. He is being discharged home in a stable condition and advised to set up primary care with the [facility] or another primary care provider of claudia ohara and follow up with him in 3-5 days. CONSULTATIONS DURING THIS HOSPITALIZATION: Cardiology, Dr. Villa Tran, white sourer, Dr. Iain Mccoy and Nephrology, Dr. Yamil Broussard. On the day of discharge, Mr. Maloney has sodium 135, potassium 3.8, creatinine 1.07, and blood urea nitrogen 16. On 02/07/2017, he had a white count of 10,900, hemoglobin 13.8 and platelet count 222,0 00. His urine toxicology screen at the time of admission was positive for amphetamines, methamphetam brittany, and cannabinoids. He has been advised to stop recreational drug use. Please note that towards the end of his hospitalization, he had nausea and vomiting, which resolved b y the day of discharge. Many thanks for allowing me to participate in your patient's care. Please feel free to contact me wi th any questions or concerns. DISCHARGE DESTINATION: Home. TOTAL AMOUNT OF TIME SPENT COORDINATING THIS DISCHARGE: 38 minutes.
[2017-02-08 10:39] VITALS: TEMP 98.8
[2017-02-08 14:52] VITALS: BP 137/80
--- NOTE | 2017-02-08 20:33 | PRG ---
DATE OF SERVICE: 02/09/2017 SUBJECTIVE: Patient was seen and examined at bedside and overnight events noted. Patient denies any shortness of breath or chest pain or palpitation. No history of nausea or vomiting or diarrhea or f ever or chills or cramps. OBJECTIVE: GENERAL: This is a well-built male in no apparent distress. VITAL SIGNS: Temperature 98.8, pulse 70, respiratory rate 20, blood pressure 140/85. HEENT: Atraumatic, normocephalic. Oral mucosa is moist. NECK: Supple. CARDIOVASCULAR: S1, S2 heard. Rate and rhythm regular. RESPIRATORY: Clear to auscultation. GASTROINTESTINAL: Abdomen is soft. MUSCULOSKELETAL: No tenderness. No edema. DERMATOLOGIC: No skin rash. NEUROLOGIC: Alert and awake and oriented x3. No focal neurologic deficits. Moving all the extremiti es. PSYCHIATRIC: Mood and affect normal. LABORATORY DATA: Potassium is 3.8, BUN is 16, and creatinine is 1.07. ASSESSMENT AND PLAN: 1. Acute kidney injury. Renal function is stable. 2. Edema, currently stable. 3. Hypertension, currently stable. 4. Overall, renal function is stable. Patient was advised to follow up in the clinic in 1-2 weeks.
== END 2017-02-08 12:49 | disposition home or self-care (01) | DRG 871 ==
LOC: ERS 10:50 → ERHOLD 13:30 → IMCU/EMU 17:02 → CCU 01-30 01:43 → 2NO 02-02 20:32
PROVIDERS: ADMIT Internal Medicine Infectious Disease; ATTEND Internal Medicine Infectious Disease
PROC: 4A023N7 Measurement of Cardiac Sampling and Pressure, Left Heart, Percutaneous Approach (ICD-10-PCS; principal; 2017-02-02)
PROC: B2111ZZ Fluoroscopy of Multiple Coronary Arteries using Low Osmolar Contrast (ICD-10-PCS; 2017-02-02)
PROC: B2151ZZ Fluoroscopy of Left Heart using Low Osmolar Contrast (ICD-10-PCS; 2017-02-02)
DX: A41.9 Sepsis, unspecified organism (principal); I21.4 Non-ST elevation (NSTEMI) myocardial infarction; J96.01 Acute respiratory failure with hypoxia; I50.21 Acute systolic (congestive) heart failure; N17.9 Acute kidney failure, unspecified; I42.8 Other cardiomyopathies; F11.20 Opioid dependence, uncomplicated; R04.2 Hemoptysis; E87.2 Acidosis; E87.1 Hypo-osmolality and hyponatremia; G40.509 Epileptic seizures related to external causes, not intractable, without status epilepticus; R65.20 Severe sepsis without septic shock; K27.9 Peptic ulcer, site unspecified, unspecified as acute or chronic, without hemorrhage or perforation; F41.9 Anxiety disorder, unspecified; F15.10 Other stimulant abuse, uncomplicated; F12.10 Cannabis abuse, uncomplicated; I10 Essential (primary) hypertension; I08.1 Rheumatic disorders of both mitral and tricuspid valves; N14.1 Nephropathy induced by other drugs, medicaments and biological substances; T50.8X5A Adverse effect of diagnostic agents, initial encounter; Y92.239 Unspecified place in hospital as the place of occurrence of the external cause; R11.2 Nausea with vomiting, unspecified; F10.21 Alcohol dependence, in remission; I51.4 Myocarditis, unspecified
CPT/HCPCS: 36415; 71010; 74176; 76770; 80048; 80053; 80061; 80306; 80307; 81003; 82553; 82570; 82805; 83605; 83690; 83735; 83880; 84300; 84484; 85025; 85347; 85610; 85652; 85730; 86021; 86038; 86140; 86430; 86850; 86900; 86901; 87040; 93005; 93010; 93306; 93458; 93798; 94640; 94760; 96361; 96365; 96375; 96376; 99152; A4216; C1769; C9113; J0456; J0696; J1160; J1644; J1885; J1940; J1956; J2060; J2250; J2270; J2405; J2720; J2765; J3010; J3475; J7050; J7620

== ENCOUNTER 2017-03-19 09:51 | Outpatient (CLI) | payer MEDICAID ==
--- NOTE | 2017-03-19 12:18 | RAD ---
PA AND LATERAL CHEST: Indication: History of dyspnea. Comparison: 02-05-17 Single view of the chest. FINDINGS: There are bilateral nipple shadows. No confluent airspace opacity is noted. Small calcified granuloma in the right upper lobe is stable. No acute osseous abnormality is evident. Cardiomediastinal silhou ette is within normal limits. IMPRESSION: No acute cardiopulmonary abnormality. POS: [facility]
== END 2017-03-19 09:52 | disposition home or self-care (01) ==
LOC: RAD 09:51
PROVIDERS: ATTEND Internal Medicine
DX: R06.00 Dyspnea, unspecified (principal)
CPT/HCPCS: 71046